=== PATIENT | female | born 1975 | race Caucasian/White ===

== ENCOUNTER 2016-09-25 23:17 | Emergency (ER) | payer OTHER ==
--- NOTE | 2016-09-26 00:46 | ED CLINICAL REPORT ---
Clinical Report - Physicians/Mid Levels [facility] [address] [place] [address] 09/25/2016 23:19 Patient: BHAVIN FAITH Time Seen: 23:32; initial patient contact. Arrived- By private vehicle. Historian- patient. HISTORY OF PRESENT ILLNESS Chief Complaint: PARESTHESIA. This started today and is still present but is improving. It was gradual in onset. The patient has had new onset of constant tingling of the left arm (mild). No weakness, numbness or impaired speech. At its maximum deficit described as mild. When seen in the E.D., deficit described as mild. No dizziness. Usually is alert and oriented X3 and has normal mobility. Similar symptoms previously: Several times. Recent medical care: The patient was seen recently in the office. Seen for other problems. REVIEW OF SYSTEMS No headache, head injury or joint pain. She has had neck pain. All systems otherwise negative, except as recorded above. PAST HISTORY Negative. Surgeries: Dental surgery. SOCIAL HISTORY Current every day smoker. ADDITIONAL NOTES The nursing notes have been reviewed with agreement regarding the chief complaint, PMH and patient medications and allergies. PHYSICAL EXAM Vital Signs: 09/25/2016 23:28 BP: 153/87. HR: 88. RR: 16. O2 saturation: 100%. Temp: 98.5 F. Have been reviewed. Hypertensive. Heart rate normal. Respiratory rate normal. Temperature normal. Oxygen saturation normal. Appearance: Alert. No acute distress. Head: Head atraumatic. ENT: Pharynx normal. Neck: Mild muscle spasm of the right and left posterior neck. Mild soft tissue tenderness in the right upper, mid and lower neck area and left upper, mid and lower neck area. No meningeal signs or decreased ROM in the neck. CVS: Normal heart rate and rhythm. Heart sounds normal. Respiratory: No respiratory distress. Breath sounds normal. Back: Normal inspection. Skin: Normal skin color. No rash. Neuro: Alert. Oriented X 3. Mood/affect normal. Speech normal. No motor deficit. No sensory deficit. Reflex exam: right triceps 2+, left triceps 2+, right brachioradialis 2+ and left brachioradialis 2+. LABS, X-RAYS, AND EKG C-Spine X-rays: Prominent straightening of the cervical spine. Moderate reversal of the normal cervical lordosis. Soft tissues normal. No fracture or subluxation. No bony lesion. Views: 3 view C-spine series. Technique: good. The X-rays were independently viewed by me and interpreted contemporaneously by me. Prior films were not available for comparison. Interpretation time: 00:45. PROGRESS AND PROCEDURES Disposition: Discharged home in good condition. Condition: good. CLINICAL IMPRESSION Muscle strain of the neck. INSTRUCTIONS Your Current Medications: CONTINUE TAKING THE FOLLOWING MEDICATIONS: Methadose Oral. Follow-up: Follow up with your doctor if not better. Call for an appointment. Screening today revealed the patient's blood pressure to be in the hypertensive range. The patient should follow up with a primary care provider for blood pressure management. (Electronically signed by Benny Perez Dr. 09/26/2016 0:48)
--- NOTE | 2016-09-26 00:46 | ED ORDER SUMMARY ---
..... Patient: BHAVIN FAITH OrderSheet [facility] VisitID: [id number] [address] [place] [address] 41y, F Registration Date/Time: 09/25/2016 ORDER SHEET Weight: 90.7 kg (stated) Allergies: Ultram GENERAL ORDERS: Cervical Spine 2 or 3V Urgent (23:54 09/25/2016 Massimo Bush) (Ack 0:00 Sean [facility] Toolroom Clerk) (0:17 Ellen) MEDICATION ORDERS: IV FLUIDS: ORDER SHEET NOTES: [Electronically signed by Benny Perez Dr. (00:48 09/26/2016)] [Electronically signed by Rubens Hall R.N. (01:11 09/26/2016)] [Electronically locked/signed by Rubens Hall R.N. (01:11 09/26/2016)]
--- NOTE | 2016-09-26 00:46 | ED NURSING NOTES ---
Clinical Report - Nurses [facility] [address] [place] [address] 09/25/2016 23:19 Patient: BHAVIN FAITH TRIAGE Triage time 2328. Acuity: LEVEL 3. Chief Complaint: RIGHT UPPER EXTREMITY NUMBNESS. LEFT UPPER EXTREMITY NUMBNESS. --23:35 Rubens Hall R.N. 23:28 09/25/16. BP: 153/87. HR: 88. RR: 16. O2 saturation: 100%. Temp: 98.5 F. Pain level now 0/10. --23:35 Rubens Hall R.N. Weight: 90.7 kg stated. Height/Length: 66 inches Per Patient. BMI: 32.3. --23:39 Rubens Hall R.N. Medications Methadose Oral. --23:31 Rubens Hall R.N. Allergies Ultram. --23:31 Rubens Hall R.N. History Historian: patient. No injury occurred. 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 PAST MEDICAL HX: Last normal menstrual period was 4 weeks ago- n. SOCIAL HX: Heavy tobacco smoker- 1 pack per day. FALL RISK ASSESSMENT: Fall risk assessment completed. No fall risk identified. NUTRITIONAL RISK ASSESSMENT: The nutritional risk assessment revealed no deficiencies. FUNCTIONAL ASSESSMENT: Functional assessment: no impairments noted. LEARNING NEEDS ASSESSMENT: The learning needs assessment revealed no barriers. SKIN INTEGRITY ASSESSMENT: Skin integrity risk assessment completed. No skin integrity risk identified. --23:35 Rubens Hall R.N. ADDITIONAL SURGERIES: Tooth implant. --23:32 Rubens Hall R.N. Interventions ID band on patient. --23:35 Rubens Hall R.N. PHYSICAL ASSESSMENT Ambulatory to room. GENERAL / NEURO / PSYCH: Oriented X 4. Alert. Appears in no acute distress. EXTREMITIES: Extremities exhibit normal ROM. Neuro-vascular status intact to the extremity. No upper extremity edema. Skin is non-tender on the extremities. SKIN: Skin intact. Skin is warm and dry. --23:38 Rubens Hall R.N. NURSING PROGRESS NOTES Patient gowned. Reassurance given. Patient identifiers checked. Call light placed in reach. Bed placed in lowest position. Brakes of bed on. --23:39 Rubens Hall R.N. DISPOSITION / DISCHARGE Departure time: 0100. Condition at departure: improved. No learning barriers present. Discharge instructions provided and reviewed with the patient. Reviewed warnings. Treatments reviewed. Activity restrictions reviewed. Patient verbalized understanding. Written instructions provided in Serbian. The patient was discharged by the physician. She was discharged home and unaccompanied at time of discharge. She left the Emergency Department ambulatory and via private vehicle. Patient driving. FALL RISK ASSESSMENT: Fall risk assessment completed. No fall risk identified. --01:11 Rubens Hall R.N. 01:10 09/26/16. BP: 144/88. HR: 88. RR: 16. O2 saturation: 98%. Temp: 98 F. Pain level now 0/10. --01:11 Rubens Hall R.N. Locked/Released at 09/26/2016 1:11 by Rubens Hall R.N.
--- NOTE | 2016-09-26 00:46 | ED CLINICAL REPORT ---
Clinical Report - Physicians/Mid Levels [facility] [address] [place] [place] [address] 09/25/2016 23:19 Patient: BHAVIN FAITH Time Seen: 23:32; initial patient contact. Arrived- By private vehicle. Historian- patient. HISTORY OF PRESENT ILLNESS Chief Complaint: PARESTHESIA. This started today and is still present but is improving. It was gradual in onset. The patient has had new onset of constant tingling of the left arm (mild). No weakness, numbness or impaired speech. At its maximum deficit described as mild. When seen in the E.D., deficit described as mild. No dizziness. Usually is alert and oriented X3 and has normal mobility. Similar symptoms previously: Several times. Recent medical care: The patient was seen recently in the office. Seen for other problems. REVIEW OF SYSTEMS No headache, head injury or joint pain. She has had neck pain. All systems otherwise negative, except as recorded above. PAST HISTORY Negative. Surgeries: Dental surgery. SOCIAL HISTORY Current every day smoker. ADDITIONAL NOTES The nursing notes have been reviewed with agreement regarding the chief complaint, PMH and patient medications and allergies. PHYSICAL EXAM Vital Signs: 09/25/2016 23:28 BP: 153/87. HR: 88. RR: 16. O2 saturation: 100%. Temp: 98.5 F. Have been reviewed. Hypertensive. Heart rate normal. Respiratory rate normal. Temperature normal. Oxygen saturation normal. Appearance: Alert. No acute distress. Head: Head atraumatic. ENT: Pharynx normal. Neck: Mild muscle spasm of the right and left posterior neck. Mild soft tissue tenderness in the right upper, mid and lower neck area and left upper, mid and lower neck area. No meningeal signs or decreased ROM in the neck. CVS: Normal heart rate and rhythm. Heart sounds normal. Respiratory: No respiratory distress. Breath sounds normal. Back: Normal inspection. Skin: Normal skin color. No rash. Neuro: Alert. Oriented X 3. Mood/affect normal. Speech normal. No motor deficit. No sensory deficit. Reflex exam: right triceps 2+, left triceps 2+, right brachioradialis 2+ and left brachioradialis 2+. LABS, X-RAYS, AND EKG C-Spine X-rays: Prominent straightening of the cervical spine. Moderate reversal of the normal cervical lordosis. Soft tissues normal. No fracture or subluxation. No bony lesion. Views: 3 view C-spine series. Technique: good. The X-rays were independently viewed by me and interpreted contemporaneously by me. Prior films were not available for comparison. Interpretation time: 00:45. PROGRESS AND PROCEDURES Disposition: Discharged home in good condition. Condition: good. CLINICAL IMPRESSION Muscle strain of the neck. INSTRUCTIONS Your Current Medications: CONTINUE TAKING THE FOLLOWING MEDICATIONS: Methadose Oral. Follow-up: Follow up with your doctor if not better. Call for an appointment. Screening today revealed the patient's blood pressure to be in the hypertensive range. The patient should follow up with a primary care provider for blood pressure management. (Electronically signed by Benny Perez Dr. 09/26/2016 0:48)
--- NOTE | 2016-09-26 00:46 | ED NURSING NOTES ---
Clinical Report - Nurses [facility] [address] [place] [address] 09/25/2016 23:19 Patient: BHAVIN FAITH TRIAGE Triage time 2328. Acuity: LEVEL 3. Chief Complaint: RIGHT UPPER EXTREMITY NUMBNESS. LEFT UPPER EXTREMITY NUMBNESS. --23:35 Rubens Hall R.N. 23:28 09/25/16. BP: 153/87. HR: 88. RR: 16. O2 saturation: 100%. Temp: 98.5 F. Pain level now 0/10. --23:35 Rubens Hall R.N. Weight: 90.7 kg stated. Height/Length: 66 inches Per Patient. BMI: 32.3. --23:39 Rubens Hall R.N. Medications Methadose Oral. --23:31 Rubens Hall R.N. Allergies Ultram. --23:31 Rubens Hall R.N. History Historian: patient. No injury occurred. 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 PAST MEDICAL HX: Last normal menstrual period was 4 weeks ago- n. SOCIAL HX: Heavy tobacco smoker- 1 pack per day. FALL RISK ASSESSMENT: Fall risk assessment completed. No fall risk identified. NUTRITIONAL RISK ASSESSMENT: The nutritional risk assessment revealed no deficiencies. FUNCTIONAL ASSESSMENT: Functional assessment: no impairments noted. LEARNING NEEDS ASSESSMENT: The learning needs assessment revealed no barriers. SKIN INTEGRITY ASSESSMENT: Skin integrity risk assessment completed. No skin integrity risk identified. --23:35 Rubens Hall R.N. ADDITIONAL SURGERIES: Tooth implant. --23:32 Rubens Hall R.N. Interventions ID band on patient. --23:35 Rubens Hall R.N. PHYSICAL ASSESSMENT Ambulatory to room. GENERAL / NEURO / PSYCH: Oriented X 4. Alert. Appears in no acute distress. EXTREMITIES: Extremities exhibit normal ROM. Neuro-vascular status intact to the extremity. No upper extremity edema. Skin is non-tender on the extremities. SKIN: Skin intact. Skin is warm and dry. --23:38 Rubens Hall R.N. NURSING PROGRESS NOTES Patient gowned. Reassurance given. Patient identifiers checked. Call light placed in reach. Bed placed in lowest position. Brakes of bed on. --23:39 Rubens Hall R.N. DISPOSITION / DISCHARGE Departure time: 0100. Condition at departure: improved. No learning barriers present. Discharge instructions provided and reviewed with the patient. Reviewed warnings. Treatments reviewed. Activity restrictions reviewed. Patient verbalized understanding. Written instructions provided in Greek. The patient was discharged by the physician. She was discharged home and unaccompanied at time of discharge. She left the Emergency Department ambulatory and via private vehicle. Patient driving. FALL RISK ASSESSMENT: Fall risk assessment completed. No fall risk identified. --01:11 Rubens Hall R.N. 01:10 09/26/16. BP: 144/88. HR: 88. RR: 16. O2 saturation: 98%. Temp: 98 F. Pain level now 0/10. --01:11 Rubens Hall R.N. Locked/Released at 09/26/2016 1:11 by Rubens Hall R.N.
--- NOTE | 2016-09-26 00:46 | ED ORDER SUMMARY ---
..... Patient: BHAVIN FAITH OrderSheet [facility] VisitID: [id number] [address] [place] [address] 41y, F Registration Date/Time: 09/25/2016 ORDER SHEET Weight: 90.7 kg (stated) Allergies: Ultram GENERAL ORDERS: Cervical Spine 2 or 3V Urgent (23:54 09/25/2016 Massimo Bush) (Ack 0:00 Sean [facility] Stock Counter) (0:17 Ellen) MEDICATION ORDERS: IV FLUIDS: ORDER SHEET NOTES: [Electronically signed by Benny Perez Dr. (00:48 09/26/2016)] [Electronically signed by Rubens Hall R.N. (01:11 09/26/2016)] [Electronically locked/signed by Rubens Hall R.N. (01:11 09/26/2016)]
--- NOTE | 2016-09-26 01:11 | ED MED RECONCILIATION SUMMARY ---
Patient: BHAVIN FAITH Medication Reconciliation Report [facility] VisitID: [id number] [address] [place] [address] 41y, F Registration Date/Time: 09/25/2016 Weight: 90.7 kg Height/Length: 66 in. BMI: 32.3 ALLERGIES: Ultram The patient's Home Medications are listed below: CONTINUE TAKING THE FOLLOWING MEDICATIONS: Methadose Oral The source(s) of the original Home Medication information: Not obtained. The following Medications were given to the patient in the Emergency Department: None. The following Medications were prescribed to the patient: None.
--- NOTE | 2016-09-26 01:11 | ED MAR SUMMARY ---
..... Medication Administration Record [facility] [address] [place], [place] [id number] Patient: BHAVIN FAITH Visit ID: [id number] 41y, F Weight: 90.7 kg Height/Length: 66 in BMI: 32.3 ALLERGIES: Ultram
--- NOTE | 2016-09-26 01:11 | ED MAR SUMMARY ---
..... Medication Administration Record [facility] [address] [place], [place] [id number] Patient: BHAVIN FAITH Visit ID: [id number] 41y, F Weight: 90.7 kg Height/Length: 66 in BMI: 32.3 ALLERGIES: Ultram
--- NOTE | 2016-09-26 01:11 | ED DISCHARGE INSTRUCTIONS ---
Patient: BHAVIN FAITH General Instructions [facility] VisitID: [id number] [place] [address] 41y, F Registration Date/Time: 09/25/2016 Muscle strain of the neck. INSTRUCTIONS Your Current Medications: CONTINUE TAKING THE FOLLOWING MEDICATIONS: Methadose Oral. Follow-up: Follow up with your doctor if not better. Call for an appointment. Screening today revealed the patient's blood pressure to be in the hypertensive range. The patient should follow up with a primary care provider for blood pressure management. ADDITIONAL INFORMATION Neck Sprain Or Strain A sudden force that causes turning or bending of the neck (such as in a car accident) can stretch or tear muscles (strain) and ligaments (sprain) and cause neck pain. Sometimes neck pain occurs after a simple awkward movement. In either case, muscle spasm is commonly present and contributes to the pain. Unless you had a forceful physical injury (for example, a car accident or fall), X-rays are usually not ordered for the initial evaluation of neck pain. If pain continues and dose not respond to medical treatment, X-rays and other tests may be performed at a later time. Home care The following guidelines will help you care for your injury at home: You may feel more soreness and spasm the first few days after the injury. Reduce your activity level until symptoms begin to improve. When lying down, use a comfortable pillow that supports the head and keeps the spine in a neutral position. The position of the head should not be tilted forward or backward. Use ice packs (ice in a plastic bag, wrapped in a towel) to treat acute pain. Apply for 20 minutes every 24 hours during the first two days. Then, begin local heat (hot shower, hot bath or heating pad) andmassageto reduce muscle spasm. Some patients feel best alternating hot and cold treatments, or just staying with one method only. Do what feels the best to you and gives the most relief. You may use acetaminophen or ibuprofen to control pain, unless another pain medicine was prescribed.If you have chronic liver or kidney disease or ever had a stomach ulcer or GI bleeding, talk with your doctor before using these medicines. Follow-up care Follow up with your physician or this facility if your symptoms do not show signs of improvement. Physical therapy may be needed. If you had X-rays today, they didnt show any broken bones, breaks, or fractures. Sometimes fractures dont show up on the first X-ray. Bruises and sprains can sometimes hurt as much as a fracture. These injuries can take time to heal completely. If your symptoms dont improve or they get worse, talk with your doctor. You may need a repeat X-ray. When to seek medical care Get prompt medical attention if any of the following occur: Pain becomes worse or spreads into your arms Weakness or numbness in one or both arms You have been given the following additional information: Neck Sprain/Strain (Electronically signed by Benny Perez Dr. 09/26/2016 0:48)
--- NOTE | 2016-09-26 01:11 | ED MED RECONCILIATION SUMMARY ---
Patient: BHAVIN FAITH Medication Reconciliation Report [facility] VisitID: [id number] [address] [place] [address] 41y, F Registration Date/Time: 09/25/2016 Weight: 90.7 kg Height/Length: 66 in. BMI: 32.3 ALLERGIES: Ultram The patient's Home Medications are listed below: CONTINUE TAKING THE FOLLOWING MEDICATIONS: Methadose Oral The source(s) of the original Home Medication information: Not obtained. The following Medications were given to the patient in the Emergency Department: None. The following Medications were prescribed to the patient: None.
--- NOTE | 2016-09-26 06:22 | DIAGNOSTIC IMAGING REPORT ---
PROCEDURE: XR CERVICAL SPINE 2 OR 3 VIEW INDICATION: NECK PAIN TECHNIQUE: Three views. COMPARISON: None. FINDINGS: There mild degenerative changes of the mid cervical spine with mild disc space narrowing at C5-6 level. There is mild facet disease. The rest the osseous structures and disc spaces are normal. No evidence of an acute process or fracture. IMPRESSION: 1. Mild degenerative changes of the cervical spine.
== END 2016-09-26 01:00 | disposition home or self-care (01) ==
LOC: ED SRH 23:17
DX: S16.1XXA Strain of muscle, fascia and tendon at neck level, initial encounter (principal); X58.XXXA Exposure to other specified factors, initial encounter; F17.200 Nicotine dependence, unspecified, uncomplicated; Z88.6 Allergy status to analgesic agent

== ENCOUNTER 2016-09-26 21:27 | Emergency (ER) | payer OTHER ==
--- NOTE | 2016-09-26 23:01 | DIAGNOSTIC IMAGING REPORT ---
PROCEDURE: XR CHEST 2 VIEW INDICATION: Shortness of breath. Epigastric pain. TECHNIQUE: PA and lateral views. COMPARISON: Compared to chest x-ray on 11/25/2010. FINDINGS: Large hiatal hernia. Lungs are clear. Heart and mediastinum are normal. Thorax is normal. IMPRESSION: 1. Large hiatal hernia. 2. Otherwise negative chest.
--- NOTE | 2016-09-27 00:19 | ED CLINICAL REPORT ---
Clinical Report - Physicians/Mid Levels [facility] [address] [place] [address] 09/26/2016 21:27 Patient: BHAVIN FAITH Time Seen: 22:34 Sep 26 2016. Arrived- By private vehicle. Historian- patient. CPT: ER phys charges level 4 (#[id number]). HISTORY OF PRESENT ILLNESS Chief Complaint: PALPITATIONS. Modifying factors. Not worsened by anything. Not relieved by anything. This started today ( Pt was seen here last night for bilateral arm numbness. Pt came here today due to nausea and palpitations. Pt says, "my heart and chest does not hurt, but I feel like it is racing." My stomach is making growling noises. Pt is also feeling dizzy and wants to cry. She is feeling hot and cold at the same time, per pt.). She has had nausea. and is still present. It is described as a fast heart beat. No chest pain or discomfort, difficulty breathing or sweating episodes. She has had dizziness and tingling in hands. Similar symptoms previously: None. Recent medical care: The patient was seen recently at this facility. REVIEW OF SYSTEMS No fever, chills, cough, sore throat or nausea. No abdominal pain, black stools, difficulty with urination, skin rash or vomiting. No diarrhea. All systems otherwise negative, except as recorded above. PAST HISTORY See nurses notes. Myofascial Strain. Asthma. 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 Pneumonia. SOCIAL HISTORY Heavy tobacco smoker (cigarette)- 1 pack per day. ADDITIONAL NOTES The nursing notes have been reviewed. PHYSICAL EXAM Vital Signs: 09/26/2016 21:30 BP: 159/108. HR: 86. RR: 22. O2 saturation: 100%. Temp: 98.1 F. Appearance: Alert. Anxious. Patient in mild distress. Eyes: Eyes normal inspection. ENT: Pharynx normal. Neck: Normal inspection. CVS: Normal heart rate and rhythm. Heart sounds normal. Pulses normal. Respiratory: No respiratory distress. Breath sounds normal. Chest nontender. Abdomen: Soft and nontender. Bowel sounds normal. Back: Normal external inspection. Skin: Skin warm. Normal skin color. No rash. Extremities: Extremities exhibit normal ROM. No lower extremity edema. Neuro: Oriented X 3. No motor deficit. No sensory deficit. LABS, X-RAYS, AND EKG EKG: Normal EKG. Chest X-ray: No acute disease. Normal heart size. Mediastinum normal. Great vessels normal. No infiltrate. (large hiatal hernia). Views: PA and lateral. Technique: good. The X-rays were independently viewed by me and interpreted by the radiologist. PROGRESS AND PROCEDURES Course of Care: Zofran ODT 4 mg by mouth Xanax 0.5 mg by mouth patient much better with resolution of dizziness nausea and symptoms that she came in with. Has not had any palpitations since she's been here. Her palpitation episode at home only lasted 3 or 4 minutes. Patient is stable. The patient's symptoms are now gone. Symptoms much better. Patient/family counseled. Disposition: Discharged. Condition: stable and improved. CLINICAL IMPRESSION Palpitations and dizziness: Resolved. INSTRUCTIONS No strenuous activity. Rest. Avoid stimulants (such as cigarettes, coffee, cold medicines, sinus medicines, street drugs). Warnings: Further evaluation is necessary. SEDATIVE MEDICATION: You were given sedative medication during your visit. Do not drive or operate dangerous machinery. GENERAL WARNINGS: Return or contact your physician immediately if your condition worsens or changes unexpectedly, if not improving as expected, or if other problems arise. Your Current Medications: CONTINUE TAKING THE FOLLOWING MEDICATIONS: Methadose Oral. Prescription Medications: Zofran (orally disintegrating tablets) 4 mg: take 1 orally every 6 hours as needed for nausea. Dispense ten (10). No refill. Substitution is permissible. Xanax 0.25 mg: take 1 orally every 6 hours as needed. Dispense ten (10). No refill. Substitution is permissible. Follow-up: Return to the emergency department if worse. Follow up with your doctor in five days. Call for an appointment. Understanding of the discharge instructions verbalized by patient and family. (Electronically signed by Bill Garces MD 09/29/2016 11:13)
--- NOTE | 2016-09-27 00:19 | ED NURSING NOTES ---
Clinical Report - Nurses [facility] [address] [place] [address] 09/26/2016 21:27 Patient: BHAVIN FAITH TRIAGE Acuity: LEVEL 3. Chief Complaint: (Palpitations.). --21:38 Cliff Parker R.N. 21:30 09/26/16. BP: 159/108. HR: 86. RR: 22. O2 saturation: 100%. Temp: 98.1 F. Pain level now 0/10. --21:38 Cliff Parker R.N. Weight: 90.2 kg stated. Height/Length: 67 inches Per Patient. BMI: 31.2. --21:38 Cliff Parker R.N. Medications Methadose Oral. --21:37 Cliff Parker R.N. Allergies Ultram. --21:37 Cliff Parker R.N. History ( Pt was seen here last night for bilateral arm numbness. Pt came here today due to nausea and palpitations. Pt says, "my heart and chest does not hurt, but I feel like it is racing." My stomach is making growling noises. Pt is also feeling dizzy and wants to cry. She is feeling hot and cold at the same time, per pt.). She has had nausea. PAST MEDICAL HX: Immunizations: up-to-date. SOCIAL HX: Current every day heavy tobacco smoker (cigarette)- 1 pack per day. No alcohol use or drug use. --21:38 Cliff Parker R.N. PROBLEMS: Myofascial Strain. --21:37 Cliff Parker R.N. Interventions ID band on patient. To treatment room. --21:38 Cliff Parker R.N. PHYSICAL ASSESSMENT Patient gowned. GENERAL / NEURO / PSYCH: Alert. Oriented X 4. Appears in no acute distress. HEENT: Mucous membranes are pink. RESPIRATORY: Respirations not labored. CVS: Normal sinus rhythm noted. GI / : Abdomen soft. Abdominal tenderness in the epigastric area. EXTREMITIES: No lower extremity edema. SKIN: Skin is warm and dry. --22:40 Haley Su. NURSING PROGRESS NOTES manager control, pulse oximeter and NIBP monitor placed on patient; monitor alarms on. Patient gowned. Reassurance given to the patient. Two patient identifiers checked. Call light placed in reach. Side rails up x 1. Bed placed in lowest position. Brakes of bed on. Patient ready for evaluation- chart flagged and ED physician notified. --22:41 Haley Su 22:41 09/26/16. BP: 147/98. HR: 88. RR: 20. O2 saturation: 100% on room air. Temp: 98.5 F (oral). Pain level now: 12/08. --22:41 Haley Su 22:46 09/26/2016 Zofran ODT (Ondansetron) PO Oral Disintegrating Tablets 4 mg given. Allergies verified and confirmed 5 rights. --22:46 Haley Su 22:47 09/26/2016 Alprazolam PO Tablets 0.5 mg given. Allergies verified, confirmed 5 rights and sedative warning given to the patient and patient's family. --22:47 Haley Su EKG time: (2336). EKG was ordered, performed by a tech and shown to the ED physician. --23:41 Frances Mcgee The patient is sleeping. --00:04 Haley Su 00:03 09/27/16. BP: 110/61. HR: 80. RR: 20. O2 saturation: 95% on room air. --00:04 Haley Su. DISPOSITION / DISCHARGE 00:30 09/27/16. Condition at departure: stable. No learning barriers present. Discharge instructions provided and reviewed with the patient and spouse. Reviewed medication(s) side effects, precautions, dosing and course information. Prescription(s) given to the patient. Patient verbalized understanding. Written instructions provided in Russian. The patient was discharged by the physician. She was discharged home and accompanied by spouse. She left the Emergency Department ambulatory and via private vehicle. Spouse driving. --01:54 Haley Su 00:30 09/27/16. BP: 109/67. HR: 78. RR: 20. O2 saturation: 96% on room air. Temp: 98.4 F (oral). Pain level now: 0/10. --01:54 Haley Su. Locked/Released at 09/27/2016 1:54 by Haley Su,
--- NOTE | 2016-09-27 00:19 | ED ORDER SUMMARY ---
..... Patient: BHAVIN FAITH OrderSheet [facility] VisitID: [id number] [place] [address] 41y, F Registration Date/Time: 09/26/2016 ORDER SHEET Weight: 90.2 kg (stated) Allergies: Ultram GENERAL ORDERS: Chest 2V Urgent (22:40 09/26/2016 Miranda BEYER) (Ack 22:41 AMcQuoid ER Tech1) (22:56 MCampbell) EKG - ER Stat (22:40 09/26/2016 Miranda BEYER) (Ack 22:41 AMcQuoid ER Tech1) (23:42 CHategekimana) MEDICATION ORDERS: Zofran ODT PO 4 mg (NOW) (22:40 09/26/2016 Miranda BEYER) (Ack 22:41 HSoule) (22:46 HSoule) Alprazolam PO 0.5 mg (NOW) (22:40 09/26/2016 Miranda BEYER) (Ack 22:41 HSoule) (22:47 HSoule) IV FLUIDS: ORDER SHEET NOTES: [Electronically signed by Haley Su (01:54 09/27/2016)] [Electronically signed by Bill Garces MD (11:13 09/29/2016)] [Electronically locked/signed by Haley Su (01:54 09/27/2016)]
--- NOTE | 2016-09-27 00:19 | ED ORDER SUMMARY ---
..... Patient: BHAVIN FAITH OrderSheet [facility] VisitID: [id number] [place] [address] 41y, F Registration Date/Time: 09/26/2016 ORDER SHEET Weight: 90.2 kg (stated) Allergies: Ultram GENERAL ORDERS: Chest 2V Urgent (22:40 09/26/2016 Miranda BEYER) (Ack 22:41 AMcQuoid ER Tech1) (22:56 MCampbell) EKG - ER Stat (22:40 09/26/2016 Miranda BEYER) (Ack 22:41 AMcQuoid ER Tech1) (23:42 CHategekimana) MEDICATION ORDERS: Zofran ODT PO 4 mg (NOW) (22:40 09/26/2016 Miranda BEYER) (Ack 22:41 HSoule) (22:46 HSoule) Alprazolam PO 0.5 mg (NOW) (22:40 09/26/2016 Miranda BEYER) (Ack 22:41 HSoule) (22:47 HSoule) IV FLUIDS: ORDER SHEET NOTES: [Electronically signed by Haley Su (01:54 09/27/2016)] [Electronically signed by Bill Garces MD (11:13 09/29/2016)] [Electronically locked/signed by Haley Su (01:54 09/27/2016)]
--- NOTE | 2016-09-27 00:19 | ED NURSING NOTES ---
Clinical Report - Nurses [facility] [address] [place] [address] 09/26/2016 21:27 Patient: BHAVIN FAITH TRIAGE Acuity: LEVEL 3. Chief Complaint: (Palpitations.). --21:38 Cliff Parker R.N. 21:30 09/26/16. BP: 159/108. HR: 86. RR: 22. O2 saturation: 100%. Temp: 98.1 F. Pain level now 0/10. --21:38 Cliff Parker R.N. Weight: 90.2 kg stated. Height/Length: 67 inches Per Patient. BMI: 31.2. --21:38 Cliff Parker R.N. Medications Methadose Oral. --21:37 Cliff Parker R.N. Allergies Ultram. --21:37 Cliff Parker R.N. History ( Pt was seen here last night for bilateral arm numbness. Pt came here today due to nausea and palpitations. Pt says, "my heart and chest does not hurt, but I feel like it is racing." My stomach is making growling noises. Pt is also feeling dizzy and wants to cry. She is feeling hot and cold at the same time, per pt.). She has had nausea. PAST MEDICAL HX: Immunizations: up-to-date. SOCIAL HX: Current every day heavy tobacco smoker (cigarette)- 1 pack per day. No alcohol use or drug use. --21:38 Cliff Parker R.N. PROBLEMS: Myofascial Strain. --21:37 Cliff Parker R.N. Interventions ID band on patient. To treatment room. --21:38 Cliff Parker R.N. PHYSICAL ASSESSMENT Patient gowned. GENERAL / NEURO / PSYCH: Alert. Oriented X 4. Appears in no acute distress. HEENT: Mucous membranes are pink. RESPIRATORY: Respirations not labored. CVS: Normal sinus rhythm noted. GI / : Abdomen soft. Abdominal tenderness in the epigastric area. EXTREMITIES: No lower extremity edema. SKIN: Skin is warm and dry. --22:40 Haley Su. NURSING PROGRESS NOTES metal container maker, pulse oximeter and NIBP monitor placed on patient; monitor alarms on. Patient gowned. Reassurance given to the patient. Two patient identifiers checked. Call light placed in reach. Side rails up x 1. Bed placed in lowest position. Brakes of bed on. Patient ready for evaluation- chart flagged and ED physician notified. --22:41 Haley Su 22:41 09/26/16. BP: 147/98. HR: 88. RR: 20. O2 saturation: 100% on room air. Temp: 98.5 F (oral). Pain level now: 12/08. --22:41 Haley Su 22:46 09/26/2016 Zofran ODT (Ondansetron) PO Oral Disintegrating Tablets 4 mg given. Allergies verified and confirmed 5 rights. --22:46 Haley Su 22:47 09/26/2016 Alprazolam PO Tablets 0.5 mg given. Allergies verified, confirmed 5 rights and sedative warning given to the patient and patient's family. --22:47 Haley Su EKG time: (2336). EKG was ordered, performed by a tech and shown to the ED physician. --23:41 Frances Mcgee The patient is sleeping. --00:04 Haley Su 00:03 09/27/16. BP: 110/61. HR: 80. RR: 20. O2 saturation: 95% on room air. --00:04 Haley Su. DISPOSITION / DISCHARGE 00:30 09/27/16. Condition at departure: stable. No learning barriers present. Discharge instructions provided and reviewed with the patient and spouse. Reviewed medication(s) side effects, precautions, dosing and course information. Prescription(s) given to the patient. Patient verbalized understanding. Written instructions provided in Greenlandic. The patient was discharged by the physician. She was discharged home and accompanied by spouse. She left the Emergency Department ambulatory and via private vehicle. Spouse driving. --01:54 Haley Su 00:30 09/27/16. BP: 109/67. HR: 78. RR: 20. O2 saturation: 96% on room air. Temp: 98.4 F (oral). Pain level now: 0/10. --01:54 Haley Su. Locked/Released at 09/27/2016 1:54 by Haley Su,
--- NOTE | 2016-09-27 00:19 | ED CLINICAL REPORT ---
Clinical Report - Physicians/Mid Levels [facility] [address] [place] [address] 09/26/2016 21:27 Patient: BHAVIN FAITH Time Seen: 22:34 Sep 26 2016. Arrived- By private vehicle. Historian- patient. CPT: ER phys charges level 4 (#[id number]). HISTORY OF PRESENT ILLNESS Chief Complaint: PALPITATIONS. Modifying factors. Not worsened by anything. Not relieved by anything. This started today ( Pt was seen here last night for bilateral arm numbness. Pt came here today due to nausea and palpitations. Pt says, "my heart and chest does not hurt, but I feel like it is racing." My stomach is making growling noises. Pt is also feeling dizzy and wants to cry. She is feeling hot and cold at the same time, per pt.). She has had nausea. and is still present. It is described as a fast heart beat. No chest pain or discomfort, difficulty breathing or sweating episodes. She has had dizziness and tingling in hands. Similar symptoms previously: None. Recent medical care: The patient was seen recently at this facility. REVIEW OF SYSTEMS No fever, chills, cough, sore throat or nausea. No abdominal pain, black stools, difficulty with urination, skin rash or vomiting. No diarrhea. All systems otherwise negative, except as recorded above. PAST HISTORY See nurses notes. Myofascial Strain. Asthma. 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 Pneumonia. SOCIAL HISTORY Heavy tobacco smoker (cigarette)- 1 pack per day. ADDITIONAL NOTES The nursing notes have been reviewed. PHYSICAL EXAM Vital Signs: 09/26/2016 21:30 BP: 159/108. HR: 86. RR: 22. O2 saturation: 100%. Temp: 98.1 F. Appearance: Alert. Anxious. Patient in mild distress. Eyes: Eyes normal inspection. ENT: Pharynx normal. Neck: Normal inspection. CVS: Normal heart rate and rhythm. Heart sounds normal. Pulses normal. Respiratory: No respiratory distress. Breath sounds normal. Chest nontender. Abdomen: Soft and nontender. Bowel sounds normal. Back: Normal external inspection. Skin: Skin warm. Normal skin color. No rash. Extremities: Extremities exhibit normal ROM. No lower extremity edema. Neuro: Oriented X 3. No motor deficit. No sensory deficit. LABS, X-RAYS, AND EKG EKG: Normal EKG. Chest X-ray: No acute disease. Normal heart size. Mediastinum normal. Great vessels normal. No infiltrate. (large hiatal hernia). Views: PA and lateral. Technique: good. The X-rays were independently viewed by me and interpreted by the radiologist. PROGRESS AND PROCEDURES Course of Care: Zofran ODT 4 mg by mouth Xanax 0.5 mg by mouth patient much better with resolution of dizziness nausea and symptoms that she came in with. Has not had any palpitations since she's been here. Her palpitation episode at home only lasted 3 or 4 minutes. Patient is stable. The patient's symptoms are now gone. Symptoms much better. Patient/family counseled. Disposition: Discharged. Condition: stable and improved. CLINICAL IMPRESSION Palpitations and dizziness: Resolved. INSTRUCTIONS No strenuous activity. Rest. Avoid stimulants (such as cigarettes, coffee, cold medicines, sinus medicines, street drugs). Warnings: Further evaluation is necessary. SEDATIVE MEDICATION: You were given sedative medication during your visit. Do not drive or operate dangerous machinery. GENERAL WARNINGS: Return or contact your physician immediately if your condition worsens or changes unexpectedly, if not improving as expected, or if other problems arise. Your Current Medications: CONTINUE TAKING THE FOLLOWING MEDICATIONS: Methadose Oral. Prescription Medications: Zofran (orally disintegrating tablets) 4 mg: take 1 orally every 6 hours as needed for nausea. Dispense ten (10). No refill. Substitution is permissible. Xanax 0.25 mg: take 1 orally every 6 hours as needed. Dispense ten (10). No refill. Substitution is permissible. Follow-up: Return to the emergency department if worse. Follow up with your doctor in five days. Call for an appointment. Understanding of the discharge instructions verbalized by patient and family. (Electronically signed by Bill Garces MD 09/29/2016 11:13)
--- NOTE | 2016-09-29 11:13 | ED MED RECONCILIATION SUMMARY ---
Patient: BHAVIN FAITH Medication Reconciliation Report [facility] VisitID: [id number] [address] [place] [address] 41y, F Registration Date/Time: 09/26/2016 Weight: 90.2 kg Height/Length: 67 in. BMI: 31.2 ALLERGIES: Ultram The patient's Home Medications are listed below: CONTINUE TAKING THE FOLLOWING MEDICATIONS: Methadose Oral The source(s) of the original Home Medication information: Not obtained. The following Medications were given to the patient in the Emergency Department: Zofran ODT [PO] PO 4 mg, administered: 09/26/2016 10:46:00 PM Alprazolam [PO] PO 0.5 mg, administered: 09/26/2016 10:47:00 PM The following Medications were prescribed to the patient: Zofran (orally disintegrating tablets) 4 mg: take 1 orally every 6 hours as needed for nausea. Dispense ten (10). No refill. Substitution is permissible. -- Bill Garces MD Xanax 0.25 mg: take 1 orally every 6 hours as needed. Dispense ten (10). No refill. Substitution is permissible. -- Bill Garces MD
--- NOTE | 2016-09-29 11:13 | ED DISCHARGE INSTRUCTIONS ---
Patient: BHAVIN FAITH General Instructions [facility] VisitID: [id number] [place] [address] 41y, F Registration Date/Time: 09/26/2016 Palpitations and dizziness: Resolved. INSTRUCTIONS No strenuous activity. Rest. Avoid stimulants (such as cigarettes, coffee, cold medicines, sinus medicines, street drugs). Warnings: Further evaluation is necessary. SEDATIVE MEDICATION: You were given sedative medication during your visit. Do not drive or operate dangerous machinery. GENERAL WARNINGS: Return or contact your physician immediately if your condition worsens or changes unexpectedly, if not improving as expected, or if other problems arise. Your Current Medications: CONTINUE TAKING THE FOLLOWING MEDICATIONS: Methadose Oral. Prescription Medications: Zofran (orally disintegrating tablets) 4 mg: take 1 orally every 6 hours as needed for nausea. Dispense ten (10). No refill. Substitution is permissible. Xanax 0.25 mg: take 1 orally every 6 hours as needed. Dispense ten (10). No refill. Substitution is permissible. Follow-up: Return to the emergency department if worse. Follow up with your doctor in five days. Call for an appointment. Understanding of the discharge instructions verbalized by patient and family. ADDITIONAL INFORMATION Ondansetron Oral disintegrating tablet What is this medicine? ONDANSETRON (on LETI se preet) is used to treat nausea and vomiting caused by chemotherapy. It is also used to prevent or treat nausea and vomiting after surgery. How should I use this medicine? These tablets are made to dissolve in the mouth. Do not try to push the tablet through the foil backing. With dry hands, peel away the foil backing and gently remove the tablet. Place the tablet in the mouth and allow it to dissolve, then swallow. While you may take these tablets with water, it is not necessary to do so. Talk to your runway model regarding the use of this medicine in children. Special care may be needed. What side effects may I notice from receiving this medicine? Side effects that you should report to your doctor or health career professional as soon as possible: allergic reactions like skin rash, itching or hives, swelling of the face, lips, or tongue breathing problems dizziness fast or irregular heartbeat feeling faint or lightheaded, falls fever and chills swelling of the hands and feet tightness in the chest Side effects that usually do not require medical attention (report to your doctor or health career professional if they continue or are bothersome): constipation or diarrhea headache What may interact with this medicine? Do not take this medicine with any of the following medications: -apomorphine -cisapride -dofetilide -dronedarone -pimozide -thioridazine -ziprasidone This medicine may also interact with the following medications: -carbamazepine -phenytoin -rifampicin -tramadol -other medicines that prolong the QT interval (cause an abnormal heart rhythm) What if I miss a dose? If you miss a dose, take it as soon as you can. If it is almost time for your next dose, take only that dose. Do not take double or extra doses. Where should I keep my medicine? Keep out of the reach of children. Store between 2 and 30 degrees C (36 and 86 degrees F). Throw away any unused medicine after the expiration date. What should I tell my health care provider before I take this medicine? They need to know if you have any of these conditions: heart disease history of irregular heartbeat liver disease low levels of magnesium or potassium in the blood an unusual or allergic reaction to ondansetron, granisetron, other medicines, foods, dyes, or preservatives or trying to get breast-feeding What should I watch for while using this medicine? Check with your doctor or health career professional as soon as you can if you have any sign of an allergic reaction. Alprazolam Oral tablet What is this medicine? ALPRAZOLAM (al PRAY dia [place]) is a benzodiazepine. It is used to treat anxiety and panic attacks. How should I use this medicine? Take this medicine by mouth with a glass of water. Follow the directions on the prescription label. Take your medicine at regular intervals. Do not take it more often than directed. If you have been taking this medicine regularly for some time, do not suddenly stop taking it. You must gradually reduce the dose or you may get severe side effects. Ask your doctor or health career professional for advice. Even after you stop taking this medicine it can still affect your body for several days. Talk to your runway model regarding the use of this medicine in children. Special care may be needed. What side effects may I notice from receiving this medicine? Side effects that you should report to your doctor or health career professional as soon as possible: allergic reactions like skin rash, itching or hives, swelling of the face, lips, or tongue confusion, forgetfulness depression difficulty sleeping difficulty speaking feeling faint or lightheaded, falls mood changes, excitability or aggressive behavior muscle cramps trouble passing urine or change in the amount of urine unusually weak or tired Side effects that usually do not require medical attention (report to your doctor or health career professional if they continue or are bothersome): change in sex drive or performance changes in appetite What may interact with this medicine? Do not take this medicine with any of the following medications: certain medicines for HIV infection or AIDS ketoconazole itraconazole This medicine may also interact with the following medications: control pills certain macrolide antibiotics like clarithromycin, erythromycin, troleandomycin cimetidine cyclosporine ergotamine grapefruit juice herbal or dietary supplements like kava kava, melatonin, dehydroepiandrosterone, DHEA, [place]'s Wort or valerian imatinib, [id number] isoniazid levodopa medicines for depression, anxiety, or psychotic disturbances prescription pain medicines rifampin, rifapentine, or rifabutin some medicines for blood pressure or heart problems some medicines for seizures like carbamazepine, oxcarbazepine, phenobarbital, phenytoin, primidone What if I miss a dose? If you miss a dose, take it as soon as you can. If it is almost time for your next dose, take only that dose. Do not take double or extra doses. Where should I keep my medicine? Keep out of the reach of children. This medicine can be abused. Keep your medicine in a safe place to protect it from theft. Do not share this medicine with anyone. Selling or giving away this medicine is dangerous and against the law. Store at room temperature between 20 and 25 degrees C (68 and 77 degrees F). Throw away any unused medicine after the expiration date. What should I tell my health care provider before I take this medicine? They need to know if you have any of these conditions: an alcohol or drug abuse problem bipolar disorder, depression, psychosis or other mental health conditions glaucoma kidney or liver disease lung or breathing disease myasthenia gravis Parkinson's disease porphyria seizures or a history of seizures suicidal thoughts an unusual or allergic reaction to alprazolam, other benzodiazepines, foods, dyes, or preservatives or trying to get breast-feeding What should I watch for while using this medicine? Visit your doctor or health career professional for regular checks on your progress. Your body can become dependent on this medicine. Ask your doctor or health career professional if you still need to take it. You may get drowsy or dizzy. Do not drive, use machinery, or do anything that needs mental alertness until you know how this medicine affects you. To reduce the risk of dizzy and fainting spells, do not stand or sit up quickly, especially if you are an older patient. Alcohol may increase dizziness and drowsiness. Avoid alcoholic drinks. Do not treat yourself for coughs, colds or allergies without asking your doctor or health career professional for advice. Some ingredients can increase possible side effects. You have been given the following additional information: Ondansetron Oral disintegrating tablet Alprazolam Oral tablet No strenuous activity. Rest. (Electronically signed by Bill Garces MD 09/29/2016 11:13)
--- NOTE | 2016-09-29 11:13 | ED MAR SUMMARY ---
..... Medication Administration Record Merged With [facility] [address] [place] [address] Patient: BHAVIN FAITH Visit ID: [id number] 41y, F Weight: 90.2 kg Height/Length: 67 in BMI: 31.2 ALLERGIES: Ultram Given 22:46 09/26/2016 Haley Su, Medication Administered: ZOFRAN ODT [PO] (ONDANSETRON), Dose: 4 mg Oral Disintegrating Tablets PO. Medication Ordered: Zofran ODT PO 4 mg (NOW). Given 22:47 09/26/2016 Haley Su, Medication Administered: ALPRAZOLAM [PO], Dose: 0.5 mg Tablets PO. Medication Ordered: Alprazolam PO 0.5 mg (NOW).
--- NOTE | 2016-09-29 11:13 | ED MAR SUMMARY ---
..... Medication Administration Record [facility] [address] [place] [address] Patient: BHAVIN FAITH Visit ID: [id number] 41y, F Weight: 90.2 kg Height/Length: 67 in BMI: 31.2 ALLERGIES: Ultram Given 22:46 09/26/2016 Haley Su, Medication Administered: ZOFRAN ODT [PO] (ONDANSETRON), Dose: 4 mg Oral Disintegrating Tablets PO. Medication Ordered: Zofran ODT PO 4 mg (NOW). Given 22:47 09/26/2016 Haley Su, Medication Administered: ALPRAZOLAM [PO], Dose: 0.5 mg Tablets PO. Medication Ordered: Alprazolam PO 0.5 mg (NOW).
--- NOTE | 2016-09-29 11:13 | ED MED RECONCILIATION SUMMARY ---
Patient: BHAVIN FAITH Medication Reconciliation Report [facility] VisitID: [id number] [address] [place] [address] 41y, F Registration Date/Time: 09/26/2016 Weight: 90.2 kg Height/Length: 67 in. BMI: 31.2 ALLERGIES: Ultram The patient's Home Medications are listed below: CONTINUE TAKING THE FOLLOWING MEDICATIONS: Methadose Oral The source(s) of the original Home Medication information: Not obtained. The following Medications were given to the patient in the Emergency Department: Zofran ODT [PO] PO 4 mg, administered: 09/26/2016 10:46:00 PM Alprazolam [PO] PO 0.5 mg, administered: 09/26/2016 10:47:00 PM The following Medications were prescribed to the patient: Zofran (orally disintegrating tablets) 4 mg: take 1 orally every 6 hours as needed for nausea. Dispense ten (10). No refill. Substitution is permissible. -- Bill Garces MD Xanax 0.25 mg: take 1 orally every 6 hours as needed. Dispense ten (10). No refill. Substitution is permissible. -- Bill Garces MD
--- NOTE | 2016-09-29 11:13 | ED DISCHARGE INSTRUCTIONS ---
Patient: BHAVIN FAITH General Instructions [facility] VisitID: [id number] [place] [address] 41y, F Registration Date/Time: 09/26/2016 Palpitations and dizziness: Resolved. INSTRUCTIONS No strenuous activity. Rest. Avoid stimulants (such as cigarettes, coffee, cold medicines, sinus medicines, street drugs). Warnings: Further evaluation is necessary. SEDATIVE MEDICATION: You were given sedative medication during your visit. Do not drive or operate dangerous machinery. GENERAL WARNINGS: Return or contact your physician immediately if your condition worsens or changes unexpectedly, if not improving as expected, or if other problems arise. Your Current Medications: CONTINUE TAKING THE FOLLOWING MEDICATIONS: Methadose Oral. Prescription Medications: Zofran (orally disintegrating tablets) 4 mg: take 1 orally every 6 hours as needed for nausea. Dispense ten (10). No refill. Substitution is permissible. Xanax 0.25 mg: take 1 orally every 6 hours as needed. Dispense ten (10). No refill. Substitution is permissible. Follow-up: Return to the emergency department if worse. Follow up with your doctor in five days. Call for an appointment. Understanding of the discharge instructions verbalized by patient and family. ADDITIONAL INFORMATION Ondansetron Oral disintegrating tablet What is this medicine? ONDANSETRON (on LETI se preet) is used to treat nausea and vomiting caused by chemotherapy. It is also used to prevent or treat nausea and vomiting after surgery. How should I use this medicine? These tablets are made to dissolve in the mouth. Do not try to push the tablet through the foil backing. With dry hands, peel away the foil backing and gently remove the tablet. Place the tablet in the mouth and allow it to dissolve, then swallow. While you may take these tablets with water, it is not necessary to do so. Talk to your pile driver engineer regarding the use of this medicine in children. Special care may be needed. What side effects may I notice from receiving this medicine? Side effects that you should report to your doctor or health director critical care as soon as possible: allergic reactions like skin rash, itching or hives, swelling of the face, lips, or tongue breathing problems dizziness fast or irregular heartbeat feeling faint or lightheaded, falls fever and chills swelling of the hands and feet tightness in the chest Side effects that usually do not require medical attention (report to your doctor or health director critical care if they continue or are bothersome): constipation or diarrhea headache What may interact with this medicine? Do not take this medicine with any of the following medications: -apomorphine -cisapride -dofetilide -dronedarone -pimozide -thioridazine -ziprasidone This medicine may also interact with the following medications: -carbamazepine -phenytoin -rifampicin -tramadol -other medicines that prolong the QT interval (cause an abnormal heart rhythm) What if I miss a dose? If you miss a dose, take it as soon as you can. If it is almost time for your next dose, take only that dose. Do not take double or extra doses. Where should I keep my medicine? Keep out of the reach of children. Store between 2 and 30 degrees C (36 and 86 degrees F). Throw away any unused medicine after the expiration date. What should I tell my health care provider before I take this medicine? They need to know if you have any of these conditions: heart disease history of irregular heartbeat liver disease low levels of magnesium or potassium in the blood an unusual or allergic reaction to ondansetron, granisetron, other medicines, foods, dyes, or preservatives or trying to get breast-feeding What should I watch for while using this medicine? Check with your doctor or health director critical care as soon as you can if you have any sign of an allergic reaction. Alprazolam Oral tablet What is this medicine? ALPRAZOLAM (al PRAY dia [place]) is a benzodiazepine. It is used to treat anxiety and panic attacks. How should I use this medicine? Take this medicine by mouth with a glass of water. Follow the directions on the prescription label. Take your medicine at regular intervals. Do not take it more often than directed. If you have been taking this medicine regularly for some time, do not suddenly stop taking it. You must gradually reduce the dose or you may get severe side effects. Ask your doctor or health director critical care for advice. Even after you stop taking this medicine it can still affect your body for several days. Talk to your pile driver engineer regarding the use of this medicine in children. Special care may be needed. What side effects may I notice from receiving this medicine? Side effects that you should report to your doctor or health director critical care as soon as possible: allergic reactions like skin rash, itching or hives, swelling of the face, lips, or tongue confusion, forgetfulness depression difficulty sleeping difficulty speaking feeling faint or lightheaded, falls mood changes, excitability or aggressive behavior muscle cramps trouble passing urine or change in the amount of urine unusually weak or tired Side effects that usually do not require medical attention (report to your doctor or health director critical care if they continue or are bothersome): change in sex drive or performance changes in appetite What may interact with this medicine? Do not take this medicine with any of the following medications: certain medicines for HIV infection or AIDS ketoconazole itraconazole This medicine may also interact with the following medications: control pills certain macrolide antibiotics like clarithromycin, erythromycin, troleandomycin cimetidine cyclosporine ergotamine grapefruit juice herbal or dietary supplements like kava kava, melatonin, dehydroepiandrosterone, DHEA, [place]'s Wort or valerian imatinib, [id number] isoniazid levodopa medicines for depression, anxiety, or psychotic disturbances prescription pain medicines rifampin, rifapentine, or rifabutin some medicines for blood pressure or heart problems some medicines for seizures like carbamazepine, oxcarbazepine, phenobarbital, phenytoin, primidone What if I miss a dose? If you miss a dose, take it as soon as you can. If it is almost time for your next dose, take only that dose. Do not take double or extra doses. Where should I keep my medicine? Keep out of the reach of children. This medicine can be abused. Keep your medicine in a safe place to protect it from theft. Do not share this medicine with anyone. Selling or giving away this medicine is dangerous and against the law. Store at room temperature between 20 and 25 degrees C (68 and 77 degrees F). Throw away any unused medicine after the expiration date. What should I tell my health care provider before I take this medicine? They need to know if you have any of these conditions: an alcohol or drug abuse problem bipolar disorder, depression, psychosis or other mental health conditions glaucoma kidney or liver disease lung or breathing disease myasthenia gravis Parkinson's disease porphyria seizures or a history of seizures suicidal thoughts an unusual or allergic reaction to alprazolam, other benzodiazepines, foods, dyes, or preservatives or trying to get breast-feeding What should I watch for while using this medicine? Visit your doctor or health director critical care for regular checks on your progress. Your body can become dependent on this medicine. Ask your doctor or health director critical care if you still need to take it. You may get drowsy or dizzy. Do not drive, use machinery, or do anything that needs mental alertness until you know how this medicine affects you. To reduce the risk of dizzy and fainting spells, do not stand or sit up quickly, especially if you are an older patient. Alcohol may increase dizziness and drowsiness. Avoid alcoholic drinks. Do not treat yourself for coughs, colds or allergies without asking your doctor or health director critical care for advice. Some ingredients can increase possible side effects. You have been given the following additional information: Ondansetron Oral disintegrating tablet Alprazolam Oral tablet No strenuous activity. Rest. (Electronically signed by Bill Garces MD 09/29/2016 11:13)
== END 2016-09-27 00:29 | disposition home or self-care (01) ==
LOC: ED SRH 21:27
DX: R00.2 Palpitations (principal); R42 Dizziness and giddiness; R11.0 Nausea; F17.210 Nicotine dependence, cigarettes, uncomplicated

== ENCOUNTER 2016-12-05 21:27 | Emergency (ER) | payer OTHER ==
--- NOTE | 2016-12-05 23:32 | DIAGNOSTIC IMAGING REPORT ---
PROCEDURE: XR CHEST 2 VIEW INDICATION: CHEST PAIN TECHNIQUE: PA and lateral views. COMPARISON: None. FINDINGS: Allowing for overlying wires and electrodes, lungs are clear. Heart is of normal size. There is a moderate hiatal hernia. Thorax is normal. IMPRESSION: 1. Moderate hiatal hernia. 2. Otherwise negative chest.
--- NOTE | 2016-12-05 23:56 | DIAGNOSTIC IMAGING REPORT ---
PROCEDURE: CTA THORAX WITH CONTRAST INDICATION: Epigastric chest pain. Elevated D-dimer (1.18). TECHNIQUE: 84 ml of Isovue 370 was injected intravenously and axial images were obtained of the entire thorax with 3D sagittal and coronal MIP reconstructions. COMPARISON: Compared to chest x-rays earlier today (12/05/2016), and on 09/26/2016 and 11/25/2010. FINDINGS: There is a moderate to large hiatal hernia with moderate ingested material in the stomach. Lungs are clear. Pulmonary vessels are normal and there is no evidence of pulmonary embolus. Heart is of normal size. IMPRESSION: 1. Moderate to large hiatal hernia with ingested material in the stomach. 2. Otherwise negative CT pulmonary arteriogram. No evidence of pulmonary embolus. 3. Findings discussed with Dr. Bandar Farley. All CT scans at this facility use dose modulation, iterative reconstruction, and/or weight-based dosing when appropriate to reduce radiation dose to as low as reasonably achievable.
--- NOTE | 2016-12-06 00:20 | ED ORDER SUMMARY ---
..... Patient: BHAVIN FAITH OrderSheet [facility] VisitID: [id number] [place] [address] 41y, F Registration Date/Time: 12/05/2016 ORDER SHEET Weight: 87.9 kg (stated) Allergies: Ultram GENERAL ORDERS: Chest 2V Urgent (21:37 12/05/2016 Kathrin BEYER) (Ack 21:58 SRetim) (22:38 MCampbell) Primary Special Education Teacher (Continuous) (21:38 12/05/2016 Kathrin BEYER) (Ack 21:58 SRetim) (22:01 EInderbitzen R.N.) CBC w Diff Urgent (21:38 12/05/2016 Kathrin BEYER) (Ack 21:58 Manny) (22:01 EInderbitzen R.N.) CMP Urgent (21:38 12/05/2016 Kathrin BEYER) (Ack 21:58 SRetim) (22:01 EInderbitzen R.N.) PT with INR Urgent (21:38 12/05/2016 Kathrin BEYER) (Ack 21:58 Manny) (22:01 EInderbitzen R.N.) PTT Urgent (21:38 12/05/2016 Kathrin BEYER) (Ack 21:58 Manny) (22:01 EInderbitzen R.N.) D-Dimer Urgent (21:38 12/05/2016 Kathrin BEYER) (Ack 21:58 Manny) (22:01 EInderbitzen R.N.) Amylase Urgent (21:38 12/05/2016 Kathrin BEYER) (Ack 21:58 Manny) (22:01 EInderbitzen R.N.) Lipase Urgent (21:38 12/05/2016 Kathrin BEYER) (Ack 21:58 Manny) (22:01 EInderbitzen R.N.) BNP Urgent (21:38 12/05/2016 Kathrin BEYER) (Ack 21:58 Manny) (22:01 EInderbitzen R.N.) CPK Urgent (21:38 12/05/2016 Kathrin BEYER) (Ack 21:58 SRetim) (22:01 EInderbitzen R.N.) Troponin-I Urgent (21:38 12/05/2016 Kathrin BEYER) (Ack 21:58 Manny) (22:01 EInderbitzen R.N.) Pulse oximeter (21:38 12/05/2016 Kathrin BEYER) (Ack 21:58 Manny) (22:01 EInderbitzen R.N.) EKG - ER Stat (21:38 12/05/2016 Kathrin BEYER) (Ack 21:58 Manny) (22:01 EInderbitzen R.N.) POC - Urine hCG (23:17 12/05/2016 Kathrin BEYER) (Ack 23:20 Manny) (23:24 EInderbitzen R.N.) CTA Thorax w Cont (No) (See report) Urgent (23:18 12/05/2016 Kathrin BEYER) (Ack 23:20 Manny) (23:41 RFay) MEDICATION ORDERS: IV FLUIDS: IV Saline Lock (21:38 12/05/2016 Kathrin BEYER) (22:02 EInderbitzen R.N.) IV NS : initial bolus 500 mL (1000 mL/hr), then 125 mL/hr for 4h (NOW); Urgent (23:16 12/05/2016 Kathrin BEYER) (23:25 EInderbitzen R.N.) ORDER SHEET NOTES: [Electronically signed by Alyce Pittman R.N. (00:27 12/06/2016)] [Electronically signed by Bandar Farley MD (11:00 12/08/2016)] [Electronically locked/signed by Alyce Pittman R.N. (00:27 12/06/2016)]
--- NOTE | 2016-12-06 00:20 | ED CLINICAL REPORT ---
Clinical Report - Physicians/Mid Levels [facility] [address] [place] [address] 12/05/2016 21:29 Patient: BHAVIN FAITH Time Seen: 21:36. Arrived- By private vehicle. Historian- patient. HISTORY OF PRESENT ILLNESS Chief Complaint: PAIN UPON INSPIRATION. This started about 1 week ago and is still present. It was gradual in onset and has been intermittent and waxing/waning. The dyspnea is described as moderate. The patient has had scant amounts of sputum and a cough. No fever, sweating episodes, wheezing or chills. She has had chest discomfort (with inspiration). (Symptoms started Thursday with tighness in chest, diagnosed with virus by primary care, went back to MD on Thursday, had chest x ray, maybe an early pneumonia, was told to go to ER if she felt worse. Pain mostly when she is exhaling). She has had a nonproductive cough (minimally)). Recent medical care: The patient was seen recently at another facility in a clinic. Seen for similar symptoms. Evaluation/treatment: CXR. Diagnosis: bronchitis. REVIEW OF SYSTEMS The patient has had chills and experienced sweats. No fever, calf pain, pedal edema, palpitations or abdominal pain. No constipation, diarrhea, nausea, vomiting or urinary problems. All systems otherwise negative, except as recorded above. PAST HISTORY Problems: Pneumonia. Myofascial Strain. Additional Surgeries: Dental Surgery. Tooth implant. Medications: Methadone HCl Oral. Iron Oral. Pantoprazole Sodium Oral. Doxycycline Hyclate Oral. Allergies: Ultram. SOCIAL HISTORY Current every day heavy tobacco smoker (cigarette)- less than 1 pack per day. No alcohol use or drug use. FAMILY HISTORY Denies family medical history. ADDITIONAL NOTES The nursing notes have been reviewed. PHYSICAL EXAM Vital Signs: 12/05/2016 21:33 BP: 145/88. HR: 79. RR: 18. O2 saturation: 100%. Temp: 98.4 F. Pain level now: 5/10. Have been reviewed. Appearance: Alert. No acute distress. Eyes: Pupils equal, round and reactive to light. ENT: Pharynx normal. Uvula midline. Neck: Normal inspection. No jugular venous distention. Neck supple. CVS: Normal heart rate and rhythm. Heart sounds normal. Respiratory: No respiratory distress. Breath sounds normal. Abdomen: Soft and nontender. No organomegaly. Back: Normal inspection. Skin: Skin warm and dry. Normal skin color. Normal skin turgor. Extremities: Extremities exhibit normal ROM. No calf tenderness. No lower extremity edema. Neuro: No motor deficit. No sensory deficit. LABS, X-RAYS, AND EKG EKG: Normal EKG. Rate: 76. Prior EKG unavailable. The study has been independently viewed by me. Chest X-ray: (IMPRESSION: 1. Moderate hiatal hernia. 2. Otherwise negative chest.). The X-rays were interpreted contemporaneously by me and discussed with the radiologist. Chest CT: (IMPRESSION: 1. Moderate to large hiatal hernia with ingested material in the stomach. 2. Otherwise negative CT pulmonary arteriogram. No evidence of pulmonary embolus.). The study was interpreted contemporaneously by me and discussed with the radiologist. Laboratory Tests: CBC w Diff: (JULIANNA: 12/05/2016 21:55) ( MsgRcvd 12/05/2016 22:33) Final results Test Result Flag Units (Reference) WHITE BLOOD COUNT 7.5 K/uL (4.5-11.5) RED BLOOD COUNT 4.60 M/uL (4.00-5.20) HEMOGLOBIN 9.8 L gm/dL (12.0-16.0) HEMATOCRIT 30.8 L % (36.0-46.0) MEAN CELL VOLUME 67 L fL (80-100) MEAN CORPUSCULAR HGB 21 L pg (26-34) MEAN CORPUSCULAR HGB CONC 32 g/dL (31-37) RED CELL DISTRIBUTION WIDTH 19.7 H % (11.6-14.8) PLATELET COUNT 568 H K/uL (150-400) NEUTROPHIL % 58.3 % (50-75) LYMPH % 30.2 % (25-40) MONO % 8.1 % (3-14) EOSINOPHIL % 2.2 % (0-4) BASOPHIL % 1.2 % (0-2) RBC MORPHOLOGY 2+ HYPOCHROMIA~~2+ MICROCYTOSIS [id number]: (JULIANNA: 12/05/2016 21:55) ( [facility] 12/05/2016 23:06) Final results Test Result Flag Units (Reference) D-DIMER QUANTITATIVE 1.13 H ug/mLFEU (0.27-0.52) The primary value of this quantitative assay relates toits negative predictive value (i.e. exclusion) of pulmonaryembolism/deep vein thrombosis/DIC.Elevated levels of d-dimer may also occur with:, age, cancer, inflammation, liver disease,post-op, infection, hematoma, coronary disease, peripheralarteriopathy, bleeding disorders and thrombolytic treatment.Results should be correlated with other clinical andradiological data.Testing Methodology: Latex Immunoassay PT with INR: (JULIANNA: 12/05/2016 21:55) ( [facility] 12/05/2016 22:12) Final results Test Result Flag Units (Reference) INR 0.9 (0.8-1.2) Low Intensity Therapy: INR 1.5-2.0 PT range 18.5-23.1Mod.Intensity Therapy: INR 2.0-3.0 PT range 23.1-31.5High Intensity Therapy: INR 2.5-3.5 PT range 27.4-35.5High Intensity Therapy 2: INR 3.0-4.0 PT range 31.5-39.3 APTT 27 SECONDS (24-34) BNP: (JULIANNA: 12/05/2016 21:55) ( [facility] 12/05/2016 22:27) Final results Test Result Flag Units (Reference) B-TYPE NATRIURETIC PEPTIDE 12.5 pg/ml (5-100) CMP: (JULIANNA: 12/05/2016 21:55) ( [facility] 12/05/2016 22:21) Final results Test Result Flag Units (Reference) GLUCOSE 112 H mg/dL (70-110) BUN 17 mg/dL (7-18) CREATININE 0.7 mg/dL (0.6-1.3) Estimated GFR >60 mL/min Estimated GFR- >60 mL/min Note: Persistent reduction over 3 months in eGFR<60 mL/min/1.73 m2 defines CKD. Patients with eGFR values>=60 mL/min/1.73 m2 may also have CKD if evidence ofpersistent proteinuria. Additional information may be foundat www.kidney.org. SODIUM 139 mmol/L (136-145) POTASSIUM 3.9 mmol/L (3.5-5.1) CHLORIDE 104 mmol/L (98-107) CARBON DIOXIDE 28 mmol/L (21-32) CALCIUM 9.0 mg/dL (8.5-10.1) TOTAL PROTEIN 7.4 g/dL (6.4-8.2) ALBUMIN 3.7 g/dL (3.3-5.0) BILIRUBIN, TOTAL 0.2 mg/dL (0.0-1.0) ALKALINE PHOSPHATASE 82 U/L (46-116) AST (SGOT) 17 U/L (15-37) ALT (SGPT) 26 U/L (12-78) LIPASE 130 U/L (73-393) AMYLASE 34 U/L (25-115) CPK 78 U/L (24-260) TROPONIN I <0.05 L ng/mL (0.00-1.5) TROPONIN REFERENCE RANGE:<0.1 NEGATIVE0.1-1.5 INDETERMINANT>1.5 POSITIVE . PROGRESS AND PROCEDURES Course of Care: Patient is stable. Patient/family counseled. Old medical records reviewed. Disposition: Discharged. Condition: stable. CLINICAL IMPRESSION Hiatal hernia. INSTRUCTIONS Avoid alcohol and NSAIDS. Examples of NSAIDS include aspirin, ibuprofen (Advil) and naproxen (Aleve). Avoid salty and spicy foods. Do not smoke. Seek medical help to quit smoking. Warnings: Further evaluation is necessary. GENERAL WARNINGS: Return or contact your physician immediately if your condition worsens or changes unexpectedly, if not improving as expected, or if other problems arise. Your Current Medications: CONTINUE TAKING THE FOLLOWING MEDICATIONS: Doxycycline Hyclate Oral. Iron Oral. Methadone HCl Oral. Pantoprazole Sodium Oral. Follow-up: Follow up with a oracle business analyst on December 17 as scheduled. Understanding of the discharge instructions verbalized by patient and family. Follow-up with: [facility], , , [address] [place] [address], , [place] [address] Follow up. Call for the next available appointment. (Electronically signed by Bandar Farley MD 12/08/2016 11:00)
--- NOTE | 2016-12-06 00:20 | ED NURSING NOTES ---
Clinical Report - Nurses [facility] [address] [place] [address] 12/05/2016 21:29 Patient: BHAVIN FAITH TRIAGE Triage time 21:Dec 05 2016. Acuity: LEVEL 3. Chief Complaint: (pain with deep breathing). 21:33 12/05/16. --21:38 Alyce Pittman R.N. 21:33 12/05/16. BP: 145/88. HR: 79. RR: 18. O2 saturation: 100%. Temp: 98.4 F. Pain level now: 01/07. --21:38 Alyce Pittman R.N. Weight: 87.9 kg stated. Height/Length: 67 inches Per Patient. BMI: 30.4. --21:33 Alyce Pittman R.N. Medications Doxycycline Hyclate Oral. --21:35 Alyce Pittman R.N. Pantoprazole Sodium Oral. --21:35 Alyce Pittman R.N. Iron Oral. --21:35 Alyce Pittman R.N. Methadone HCl Oral. --21:35 Alyce Pittman R.N. Medication/allergy information source: the patient. --21:38 Alyce Pittman R.N. Allergies Ultram. --21:35 Alyce Pittman R.N. History Arrived by private vehicle. Historian: patient. Accompanied by family. This started just prior to arrival. ( Symptoms started Thursday with tighness in chest, diagnosed with virus by primary care, went back to [place] on Thursday, had chest x ray, maybe an early pneumonia, was told to go to ER if she felt worse. Pain mostly when she is exhaling). She has had a nonproductive cough (minimally). Treatment CLAIMS TECHNICIAN: None. SOCIAL HX: Heavy tobacco smoker (cigarette)- less than 1 pack per day. No alcohol use or drug use. No infectious disease exposure. ABUSE ASSESSMENT: No report of abuse. SELF HARM ASSESSMENT: A self harm assessment was performed. The patient answered "no" to the question "Have you recently felt down, depressed, or hopeless?", "Have you noticed less interest or pleasure in doing things?", "Do you have thoughts of harming or killing yourself?", "Are you here because you tried to hurt yourself?", "Have you ever tried to hurt yourself before today?", "Have you recently had thoughts about harming or killing others?" and "Do you have any dangerous items in your possession?". NUTRITIONAL RISK ASSESSMENT: The nutritional risk assessment revealed no deficiencies. FUNCTIONAL ASSESSMENT: Functional assessment: no impairments noted. LEARNING NEEDS ASSESSMENT: The learning needs assessment revealed no barriers. SKIN INTEGRITY ASSESSMENT: Skin integrity risk assessment completed. No skin integrity risk identified. --21:38 Alyce Pittman R.N. PROBLEMS: Pneumonia. Myofascial Strain. --21:35 Alyce Pittman R.N. ADDITIONAL SURGERIES: Dental Surgery. Tooth implant. --21:35 Alyce Pittman R.N. Interventions ID band on patient. --21:38 Alyce Pittman R.N. PHYSICAL ASSESSMENT 21:41 12/05/16. Ambulatory to room. GENERAL / NEURO / PSYCH: Alert. Oriented X 4. Appears in no acute distress. HEENT: Pupils equal, round and reactive to light. No facial asymmetry noted. Mucous membranes are pink. RESPIRATORY: Respirations not labored. Breath sounds within normal limits. CVS: Capillary refill less than 2 seconds. Pulses within normal limits. GI / : Abdomen soft and nontender. SKIN: Skin intact. Skin is warm and dry. Normal skin turgor. --21:41 Alyce Pittman R.N. NURSING PROGRESS NOTES 21:41 12/05/16. The initial plan of care for this patient includes an assessment with efforts to address the presence of pain; impairment of the respiratory system. This plan of care was discussed with the patient. Patient gowned. Reassurance given. Two patient identifiers checked. Call light placed in reach. Side rails up x 1. Bed placed in lowest position. Brakes of bed on. Patient ready for evaluation. --21:41 Alyce Pittman R.N. 21:55 12/05/2016 Site #1 started via IV in the left antecubital space with an 20g angiocath, with aseptic technique and good blood return; one attempt. Blood drawn: rainbow set. Labeled in the presence of the patient and sent to the lab. Saline lock flushed with 10 mL saline. --22:02 Alyce Pittman R.N. EKG time: (2150 PM). EKG was ordered, performed by a tech and shown to the ED physician. --22:16 Frances Mcgee 22:39 12/05/16. Cardiac rhythm: normal sinus rhythm. The patient is calm and resting quietly. Overall patient status is the same- she states feels the same. Patient walked to radiology with tech. (and returned). --22:39 Alyce Pittman R.N. 22:39 12/05/16. BP: 140/89. HR: 74. RR: 18. O2 saturation: 99%. Pain level now 5/10. --22:39 Alyce Pittman R.N. 23:12 12/05/16. BP: 140/89. HR: 78. RR: 18. O2 saturation: 96%. Pain level now 5/10. --23:12 Alyce Pittman R.N. 23:12 12/05/16. Cardiac rhythm: normal sinus rhythm. The patient is calm and resting quietly. Overall patient status is the same. Patient waiting for disposition. --23:12 Alyce Pittman R.N. 23:24 12/05/16. Urine test negative. inventory control specialist check passed. --23:24 Alyce Pittman R.N. 23:25 12/05/2016 Started bag #1 1000 mL IV Fluids IV NS (Saline); at 1000 mL/hr over 30 minute(s) via site #1. Allergies verified and confirmed 5 rights. IV patency established. IV site checked: no pain, redness, or swelling. IV flushed thoroughly pre- and post-medication administration. --23:25 Alyce Pittman R.NShefali 00:18 12/06/16. Cardiac rhythm: normal sinus rhythm. The patient is calm and resting quietly. Overall patient status is the same- she states feels the same. Patient waiting for CT results and disposition. --00:18 Alyce Pittman R.NShefali 00:18 12/06/16. BP: 124/75. HR: 71. RR: 18. O2 saturation: 97%. Pain level now 12/08. --00:18 Alyce Pittman R.N. DISPOSITION / DISCHARGE 00:12/06/2016 Site #1 removed upon discharge. Catheter intact. Pressure dressing applied. --00:26 Alyce Pittman R.N. 00:12/06/2016 IV Fluids IV NS Discontinued: bag #1 discontinued upon discharge. Total amount infused: 600 mL. IV patency established. IV site checked: no pain, redness, or swelling. IV flushed thoroughly. --00:25 Alyce Pittman R.NShefali 00:12/06/16. Departure time: 00:Dec 06 2016. Condition at departure: improved and stable. The goals identified in the patient's plan of care were met. No learning barriers present. Reviewed referral to a pulley maintainer and primary care physician for followup. Summary of care provided to patient via paper. Patient verbalized understanding. Written instructions provided in Guyanese. The patient was discharged home and accompanied by family. She left the Emergency Department ambulatory and via private vehicle. Family member driving. FALL RISK ASSESSMENT: Fall risk assessment completed. No fall risk identified. --00:26 Alyce Pittman R.NShefali 00:12/06/16. BP: 124/75. HR: 71. RR: 18. O2 saturation: 97%. Pain level now 12/08. 23:11 12/05/16. BP: 140/89. HR: 78. RR: 18. O2 saturation: 96%. Pain level now 01/07. 22:39 12/05/16. BP: 140/89. HR: 74. RR: 18. O2 saturation: 99%. Pain level now 01/07. 21:33 12/05/16. BP: 145/88. HR: 79. RR: 18. O2 saturation: 100%. Temp: 98.4 F. Pain level now: 01/07. --00:26 Alyce Pittman R.N. Locked/Released at 12/06/2016 0:27 by Alyce Pittman R.N.
--- NOTE | 2016-12-06 00:20 | ED CLINICAL REPORT ---
Clinical Report - Physicians/Mid Levels [facility] [address] [place] [address] 12/05/2016 21:29 Patient: BHAVIN FAITH Time Seen: 21:36. Arrived- By private vehicle. Historian- patient. HISTORY OF PRESENT ILLNESS Chief Complaint: PAIN UPON INSPIRATION. This started about 1 week ago and is still present. It was gradual in onset and has been intermittent and waxing/waning. The dyspnea is described as moderate. The patient has had scant amounts of sputum and a cough. No fever, sweating episodes, wheezing or chills. She has had chest discomfort (with inspiration). (Symptoms started Thursday with tighness in chest, diagnosed with virus by primary care, went back to MD on Thursday, had chest x ray, maybe an early pneumonia, was told to go to ER if she felt worse. Pain mostly when she is exhaling). She has had a nonproductive cough (minimally)). Recent medical care: The patient was seen recently at another facility in a clinic. Seen for similar symptoms. Evaluation/treatment: CXR. Diagnosis: bronchitis. REVIEW OF SYSTEMS The patient has had chills and experienced sweats. No fever, calf pain, pedal edema, palpitations or abdominal pain. No constipation, diarrhea, nausea, vomiting or urinary problems. All systems otherwise negative, except as recorded above. PAST HISTORY Problems: Pneumonia. Myofascial Strain. Additional Surgeries: Dental Surgery. Tooth implant. Medications: Methadone HCl Oral. Iron Oral. Pantoprazole Sodium Oral. Doxycycline Hyclate Oral. Allergies: Ultram. SOCIAL HISTORY Current every day heavy tobacco smoker (cigarette)- less than 1 pack per day. No alcohol use or drug use. FAMILY HISTORY Denies family medical history. ADDITIONAL NOTES The nursing notes have been reviewed. PHYSICAL EXAM Vital Signs: 12/05/2016 21:33 BP: 145/88. HR: 79. RR: 18. O2 saturation: 100%. Temp: 98.4 F. Pain level now: 5/10. Have been reviewed. Appearance: Alert. No acute distress. Eyes: Pupils equal, round and reactive to light. ENT: Pharynx normal. Uvula midline. Neck: Normal inspection. No jugular venous distention. Neck supple. CVS: Normal heart rate and rhythm. Heart sounds normal. Respiratory: No respiratory distress. Breath sounds normal. Abdomen: Soft and nontender. No organomegaly. Back: Normal inspection. Skin: Skin warm and dry. Normal skin color. Normal skin turgor. Extremities: Extremities exhibit normal ROM. No calf tenderness. No lower extremity edema. Neuro: No motor deficit. No sensory deficit. LABS, X-RAYS, AND EKG EKG: Normal EKG. Rate: 76. Prior EKG unavailable. The study has been independently viewed by me. Chest X-ray: (IMPRESSION: 1. Moderate hiatal hernia. 2. Otherwise negative chest.). The X-rays were interpreted contemporaneously by me and discussed with the radiologist. Chest CT: (IMPRESSION: 1. Moderate to large hiatal hernia with ingested material in the stomach. 2. Otherwise negative CT pulmonary arteriogram. No evidence of pulmonary embolus.). The study was interpreted contemporaneously by me and discussed with the radiologist. Laboratory Tests: CBC w Diff: (JULIANNA: 12/05/2016 21:55) ( MsgRcvd 12/05/2016 22:33) Final results Test Result Flag Units (Reference) WHITE BLOOD COUNT 7.5 K/uL (4.5-11.5) RED BLOOD COUNT 4.60 M/uL (4.00-5.20) HEMOGLOBIN 9.8 L gm/dL (12.0-16.0) HEMATOCRIT 30.8 L % (36.0-46.0) MEAN CELL VOLUME 67 L fL (80-100) MEAN CORPUSCULAR HGB 21 L pg (26-34) MEAN CORPUSCULAR HGB CONC 32 g/dL (31-37) RED CELL DISTRIBUTION WIDTH 19.7 H % (11.6-14.8) PLATELET COUNT 568 H K/uL (150-400) NEUTROPHIL % 58.3 % (50-75) LYMPH % 30.2 % (25-40) MONO % 8.1 % (3-14) EOSINOPHIL % 2.2 % (0-4) BASOPHIL % 1.2 % (0-2) RBC MORPHOLOGY 2+ HYPOCHROMIA~~2+ MICROCYTOSIS [id number]: (JULIANNA: 12/05/2016 21:55) ( [facility] 12/05/2016 23:06) Final results Test Result Flag Units (Reference) D-DIMER QUANTITATIVE 1.13 H ug/mLFEU (0.27-0.52) The primary value of this quantitative assay relates toits negative predictive value (i.e. exclusion) of pulmonaryembolism/deep vein thrombosis/DIC.Elevated levels of d-dimer may also occur with:, age, cancer, inflammation, liver disease,post-op, infection, hematoma, coronary disease, peripheralarteriopathy, bleeding disorders and thrombolytic treatment.Results should be correlated with other clinical andradiological data.Testing Methodology: Latex Immunoassay PT with INR: (JULIANNA: 12/05/2016 21:55) ( [facility] 12/05/2016 22:12) Final results Test Result Flag Units (Reference) INR 0.9 (0.8-1.2) Low Intensity Therapy: INR 1.5-2.0 PT range 18.5-23.1Mod.Intensity Therapy: INR 2.0-3.0 PT range 23.1-31.5High Intensity Therapy: INR 2.5-3.5 PT range 27.4-35.5High Intensity Therapy 2: INR 3.0-4.0 PT range 31.5-39.3 APTT 27 SECONDS (24-34) BNP: (JULIANNA: 12/05/2016 21:55) ( [facility] 12/05/2016 22:27) Final results Test Result Flag Units (Reference) B-TYPE NATRIURETIC PEPTIDE 12.5 pg/ml (5-100) CMP: (JULIANNA: 12/05/2016 21:55) ( [facility] 12/05/2016 22:21) Final results Test Result Flag Units (Reference) GLUCOSE 112 H mg/dL (70-110) BUN 17 mg/dL (7-18) CREATININE 0.7 mg/dL (0.6-1.3) Estimated GFR >60 mL/min Estimated GFR- >60 mL/min Note: Persistent reduction over 3 months in eGFR<60 mL/min/1.73 m2 defines CKD. Patients with eGFR values>=60 mL/min/1.73 m2 may also have CKD if evidence ofpersistent proteinuria. Additional information may be foundat www.kidney.org. SODIUM 139 mmol/L (136-145) POTASSIUM 3.9 mmol/L (3.5-5.1) CHLORIDE 104 mmol/L (98-107) CARBON DIOXIDE 28 mmol/L (21-32) CALCIUM 9.0 mg/dL (8.5-10.1) TOTAL PROTEIN 7.4 g/dL (6.4-8.2) ALBUMIN 3.7 g/dL (3.3-5.0) BILIRUBIN, TOTAL 0.2 mg/dL (0.0-1.0) ALKALINE PHOSPHATASE 82 U/L (46-116) AST (SGOT) 17 U/L (15-37) ALT (SGPT) 26 U/L (12-78) LIPASE 130 U/L (73-393) AMYLASE 34 U/L (25-115) CPK 78 U/L (24-260) TROPONIN I <0.05 L ng/mL (0.00-1.5) TROPONIN REFERENCE RANGE:<0.1 NEGATIVE0.1-1.5 INDETERMINANT>1.5 POSITIVE . PROGRESS AND PROCEDURES Course of Care: Patient is stable. Patient/family counseled. Old medical records reviewed. Disposition: Discharged. Condition: stable. CLINICAL IMPRESSION Hiatal hernia. INSTRUCTIONS Avoid alcohol and NSAIDS. Examples of NSAIDS include aspirin, ibuprofen (Advil) and naproxen (Aleve). Avoid salty and spicy foods. Do not smoke. Seek medical help to quit smoking. Warnings: Further evaluation is necessary. GENERAL WARNINGS: Return or contact your physician immediately if your condition worsens or changes unexpectedly, if not improving as expected, or if other problems arise. Your Current Medications: CONTINUE TAKING THE FOLLOWING MEDICATIONS: Doxycycline Hyclate Oral. Iron Oral. Methadone HCl Oral. Pantoprazole Sodium Oral. Follow-up: Follow up with a wireless construction manager on December 17 as scheduled. Understanding of the discharge instructions verbalized by patient and family. Follow-up with: [facility], , , [address] [place] [address], , [place] [address] Follow up. Call for the next available appointment. (Electronically signed by Bandar Farley MD 12/08/2016 11:00)
--- NOTE | 2016-12-06 00:20 | ED ORDER SUMMARY ---
..... Patient: BHAVIN FAITH OrderSheet [facility] VisitID: [id number] [place] [address] 41y, F Registration Date/Time: 12/05/2016 ORDER SHEET Weight: 87.9 kg (stated) Allergies: Ultram GENERAL ORDERS: Chest 2V Urgent (21:37 12/05/2016 Kathrin BEYER) (Ack 21:58 SRetim) (22:38 MCampbell) Stock Hanger (Continuous) (21:38 12/05/2016 Kathrin BEYER) (Ack 21:58 SRetim) (22:01 EInderbitzen R.N.) CBC w Diff Urgent (21:38 12/05/2016 Kathrin BEYER) (Ack 21:58 Manny) (22:01 EInderbitzen R.N.) CMP Urgent (21:38 12/05/2016 Kathrin BEYER) (Ack 21:58 SRetim) (22:01 EInderbitzen R.N.) PT with INR Urgent (21:38 12/05/2016 Kathrin BEYER) (Ack 21:58 Manny) (22:01 EInderbitzen R.N.) PTT Urgent (21:38 12/05/2016 Kathrin BEYER) (Ack 21:58 Manny) (22:01 EInderbitzen R.N.) D-Dimer Urgent (21:38 12/05/2016 Kathrin BEYER) (Ack 21:58 Manny) (22:01 EInderbitzen R.N.) Amylase Urgent (21:38 12/05/2016 Kathrin BEYER) (Ack 21:58 Manny) (22:01 EInderbitzen R.N.) Lipase Urgent (21:38 12/05/2016 Kathrin BEYER) (Ack 21:58 Manny) (22:01 EInderbitzen R.N.) BNP Urgent (21:38 12/05/2016 Kathrin BEYER) (Ack 21:58 Manny) (22:01 EInderbitzen R.N.) CPK Urgent (21:38 12/05/2016 Kathrin BEYER) (Ack 21:58 SRetim) (22:01 EInderbitzen R.N.) Troponin-I Urgent (21:38 12/05/2016 Kathrin BEYER) (Ack 21:58 Manny) (22:01 EInderbitzen R.N.) Pulse oximeter (21:38 12/05/2016 Kathrin BEYER) (Ack 21:58 Manny) (22:01 EInderbitzen R.N.) EKG - ER Stat (21:38 12/05/2016 Kathrin BEYER) (Ack 21:58 Manny) (22:01 EInderbitzen R.N.) POC - Urine hCG (23:17 12/05/2016 Kathrin BEYER) (Ack 23:20 Manny) (23:24 EInderbitzen R.N.) CTA Thorax w Cont (No) (See report) Urgent (23:18 12/05/2016 Kathrin BEYER) (Ack 23:20 Manny) (23:41 RFay) MEDICATION ORDERS: IV FLUIDS: IV Saline Lock (21:38 12/05/2016 Kathrin BEYER) (22:02 EInderbitzen R.N.) IV NS : initial bolus 500 mL (1000 mL/hr), then 125 mL/hr for 4h (NOW); Urgent (23:16 12/05/2016 Kathrin BEYER) (23:25 EInderbitzen R.N.) ORDER SHEET NOTES: [Electronically signed by Alyce Pittman R.N. (00:27 12/06/2016)] [Electronically signed by Bandar Farley MD (11:00 12/08/2016)] [Electronically locked/signed by Alcye Pittman R.N. (00:27 12/06/2016)]
--- NOTE | 2016-12-06 00:20 | ED NURSING NOTES ---
Clinical Report - Nurses [facility] [address] [place] [address] 12/05/2016 21:29 Patient: BHAVIN FAITH TRIAGE Triage time 21:Dec 05 2016. Acuity: LEVEL 3. Chief Complaint: (pain with deep breathing). 21:33 12/05/16. --21:38 Alyce Pittman R.N. 21:33 12/05/16. BP: 145/88. HR: 79. RR: 18. O2 saturation: 100%. Temp: 98.4 F. Pain level now: 01/07. --21:38 Alyce Pittman R.N. Weight: 87.9 kg stated. Height/Length: 67 inches Per Patient. BMI: 30.4. --21:33 Alyce Pittman R.N. Medications Doxycycline Hyclate Oral. --21:35 Alyce Pittman R.N. Pantoprazole Sodium Oral. --21:35 Alyce Pittman R.N. Iron Oral. --21:35 Alyce Pittman R.N. Methadone HCl Oral. --21:35 Alyce Pittman R.N. Medication/allergy information source: the patient. --21:38 Alyce Pittman R.N. Allergies Ultram. --21:35 Alyce Pittman R.N. History Arrived by private vehicle. Historian: patient. Accompanied by family. This started just prior to arrival. ( Symptoms started Thursday with tighness in chest, diagnosed with virus by primary care, went back to MD on Thursday, had chest x ray, maybe an early pneumonia, was told to go to ER if she felt worse. Pain mostly when she is exhaling). She has had a nonproductive cough (minimally). Treatment EDGE MOLDER: None. SOCIAL HX: Heavy tobacco smoker (cigarette)- less than 1 pack per day. No alcohol use or drug use. No infectious disease exposure. ABUSE ASSESSMENT: No report of abuse. SELF HARM ASSESSMENT: A self harm assessment was performed. The patient answered "no" to the question "Have you recently felt down, depressed, or hopeless?", "Have you noticed less interest or pleasure in doing things?", "Do you have thoughts of harming or killing yourself?", "Are you here because you tried to hurt yourself?", "Have you ever tried to hurt yourself before today?", "Have you recently had thoughts about harming or killing others?" and "Do you have any dangerous items in your possession?". NUTRITIONAL RISK ASSESSMENT: The nutritional risk assessment revealed no deficiencies. FUNCTIONAL ASSESSMENT: Functional assessment: no impairments noted. LEARNING NEEDS ASSESSMENT: The learning needs assessment revealed no barriers. SKIN INTEGRITY ASSESSMENT: Skin integrity risk assessment completed. No skin integrity risk identified. --21:38 Alyce Pittman R.N. PROBLEMS: Pneumonia. Myofascial Strain. --21:35 Alyce Pittman R.N. ADDITIONAL SURGERIES: Dental Surgery. Tooth implant. --21:35 Alyce Pittman R.N. Interventions ID band on patient. --21:38 Alyce Pittman R.N. PHYSICAL ASSESSMENT 21:41 12/05/16. Ambulatory to room. GENERAL / NEURO / PSYCH: Alert. Oriented X 4. Appears in no acute distress. HEENT: Pupils equal, round and reactive to light. No facial asymmetry noted. Mucous membranes are pink. RESPIRATORY: Respirations not labored. Breath sounds within normal limits. CVS: Capillary refill less than 2 seconds. Pulses within normal limits. GI / : Abdomen soft and nontender. SKIN: Skin intact. Skin is warm and dry. Normal skin turgor. --21:41 Alyce Pittman R.N. NURSING PROGRESS NOTES 21:41 12/05/16. The initial plan of care for this patient includes an assessment with efforts to address the presence of pain; impairment of the respiratory system. This plan of care was discussed with the patient. Patient gowned. Reassurance given. Two patient identifiers checked. Call light placed in reach. Side rails up x 1. Bed placed in lowest position. Brakes of bed on. Patient ready for evaluation. --21:41 Alyce Pittman R.N. 21:55 12/05/2016 Site #1 started via IV in the left antecubital space with an 20g angiocath, with aseptic technique and good blood return; one attempt. Blood drawn: rainbow set. Labeled in the presence of the patient and sent to the lab. Saline lock flushed with 10 mL saline. --22:02 Alyce Pittman R.N. EKG time: (2150 PM). EKG was ordered, performed by a tech and shown to the ED physician. --22:16 Frances Mcgee 22:39 12/05/16. Cardiac rhythm: normal sinus rhythm. The patient is calm and resting quietly. Overall patient status is the same- she states feels the same. Patient walked to radiology with tech. (and returned). --22:39 Alyce Pittman R.N. 22:39 12/05/16. BP: 140/89. HR: 74. RR: 18. O2 saturation: 99%. Pain level now 5/10. --22:39 Alyce Pittman R.N. 23:12 12/05/16. BP: 140/89. HR: 78. RR: 18. O2 saturation: 96%. Pain level now 5/10. --23:12 Alyce Pittman R.N. 23:12 12/05/16. Cardiac rhythm: normal sinus rhythm. The patient is calm and resting quietly. Overall patient status is the same. Patient waiting for disposition. --23:12 Alyce Pittman R.N. 23:24 12/05/16. Urine test negative. rail operations controller check passed. --23:24 Alyce Pittman R.N. 23:25 12/05/2016 Started bag #1 1000 mL IV Fluids IV NS (Saline); at 1000 mL/hr over 30 minute(s) via site #1. Allergies verified and confirmed 5 rights. IV patency established. IV site checked: no pain, redness, or swelling. IV flushed thoroughly pre- and post-medication administration. --23:25 Alyce Pittman R.NShefali 00:18 12/06/16. Cardiac rhythm: normal sinus rhythm. The patient is calm and resting quietly. Overall patient status is the same- she states feels the same. Patient waiting for CT results and disposition. --00:18 Alyce Pittman R.NShefali 00:18 12/06/16. BP: 124/75. HR: 71. RR: 18. O2 saturation: 97%. Pain level now 12/08. --00:18 Alyce Pittman R.N. DISPOSITION / DISCHARGE 00:12/06/2016 Site #1 removed upon discharge. Catheter intact. Pressure dressing applied. --00:26 Alyce Pittman R.N. 00:12/06/2016 IV Fluids IV NS Discontinued: bag #1 discontinued upon discharge. Total amount infused: 600 mL. IV patency established. IV site checked: no pain, redness, or swelling. IV flushed thoroughly. --00:25 Alyce Pittman R.NShefali 00:12/06/16. Departure time: 00:Dec 06 2016. Condition at departure: improved and stable. The goals identified in the patient's plan of care were met. No learning barriers present. Reviewed referral to a bank vault clerk and primary care physician for followup. Summary of care provided to patient via paper. Patient verbalized understanding. Written instructions provided in Guamanian. The patient was discharged home and accompanied by family. She left the Emergency Department ambulatory and via private vehicle. Family member driving. FALL RISK ASSESSMENT: Fall risk assessment completed. No fall risk identified. --00:26 Alyce Pittman R.NShefali 00:12/06/16. BP: 124/75. HR: 71. RR: 18. O2 saturation: 97%. Pain level now 12/08. 23:11 12/05/16. BP: 140/89. HR: 78. RR: 18. O2 saturation: 96%. Pain level now 01/07. 22:39 12/05/16. BP: 140/89. HR: 74. RR: 18. O2 saturation: 99%. Pain level now 01/07. 21:33 12/05/16. BP: 145/88. HR: 79. RR: 18. O2 saturation: 100%. Temp: 98.4 F. Pain level now: 01/07. --00:26 Alyce Pittman R.N. Locked/Released at 12/06/2016 0:27 by Alyce Pittman R.N.
--- NOTE | 2016-12-08 11:00 | ED MAR SUMMARY ---
..... Medication Administration Record [facility] [address] [place] [address] Patient: BHAVIN FAITH Visit ID: [id number] 41y, F Weight: 87.9 kg Height/Length: 67 in BMI: 30.4 ALLERGIES: Ultram Start 23:25 12/05/2016 Alyce Pittman R.N., Stop 00:25 12/06/2016 Alyce Pittman R.N. Medication Administered: IV NS (SALINE), Dose: IV Fluids over 30 minute(s), Rate: 1000 mL/hr, Dispensed: 1000 mL bag, Site: #1 left AC. Medication Ordered: IV NS : initial bolus 500 mL (1000 mL/hr), then 125 mL/hr for 4h (NOW); Urgent.
--- NOTE | 2016-12-08 11:00 | ED DISCHARGE INSTRUCTIONS ---
Patient: BHAVIN FAITH General Instructions [facility] VisitID: [id number] [place] [address] 41y, F Registration Date/Time: 12/05/2016 Hiatal hernia. INSTRUCTIONS Avoid alcohol and NSAIDS. Examples of NSAIDS include aspirin, ibuprofen (Advil) and naproxen (Aleve). Avoid salty and spicy foods. Do not smoke. Seek medical help to quit smoking. Warnings: Further evaluation is necessary. GENERAL WARNINGS: Return or contact your physician immediately if your condition worsens or changes unexpectedly, if not improving as expected, or if other problems arise. Your Current Medications: CONTINUE TAKING THE FOLLOWING MEDICATIONS: Doxycycline Hyclate Oral. Iron Oral. Methadone HCl Oral. Pantoprazole Sodium Oral. Follow-up: Follow up with a insemination worker on December 17 as scheduled. Understanding of the discharge instructions verbalized by patient and family. Follow-up with: [facility], , , [address] [place] [address] Follow up. Call for the next available appointment. ADDITIONAL INFORMATION GERD (Adult) The esophagus is a tube that carries food from the mouth to the stomach. A valve at the lower end of the esophagus prevents stomach acid from flowing upward. If this valve does not work properly, acid from the stomach enters the esophagus. If this occurs over and over, the acid will injure the lining of the esophagus. This condition is called GERD (gastroesophageal reflux disease) or acid reflux. When stomach acid flows upward into the esophagus, it causes burning, pressure or sharp pain in the upper abdomen or mid to lower chest. The pain can spread to the neck, back, or shoulder, similar to heart pain (angina). There may be belching, an acid taste in the back of the throat, chronic cough, or sore throat or hoarseness. GERD symptoms often occur during the day after a big meal, but it can also occur at night when lying down. Smoking,as well as drinking alcohol, increases the risk of GERD. GERD is a chronic condition. Once it begins, it is often lifelong. Treatment includes changes in eating habits and the use of acid saritha medications to decrease the amount of acid in the stomach. Symptoms often improve with treatment, but if treatment is stopped, the symptoms usually return after a few months. So most persons with GERD will need to continue treatment. Home Care: Take the prescribed acid saritha medication for the full course of treatment even if you begin to feel better sooner. This medication can take up to several days to fully control your symptoms. If you cant afford the prescribed medication, you can try bkfi-xlb-zsbulok acid blockers, such as Pepcid AC, Tagamet, Zantac, or Aciphex. If these do not relieve your symptoms, a stronger acid-saritha can be tried, such as Prilosec OTC. You can use antacids, such as Tums, Rolaids, Mylanta, or Maalox, for pain. This will be useful the first few days after starting acid blockers when the blockers havent started working yet. Follow the directions on the label. Liquid antacids may work better than tablets. Note that antacids can interfere with absorption of certain medications. Specifically, do not take Tagamet (cimetidine), Zantac (ranitidine), or Carafate (sucralfate) within 1 hour of taking an antacid. Talk with your pharmacist if you have any questions. Limit or avoid fatty, fried, and spicy foods, as well as coffee, chocolate, mint, and foods with high acid content such as tomatoes and citrus fruit and juices (orange, grapefruit, lemon). Avoid alcohol and smoking. Dont eat large meals, especially at night. Frequent, smaller meals are best. Do not lie down right after eating. And dont eat anything 3 hours before going to bed. If you are overweight, losing weight will reduce symptoms. Women should not wear corsets or girdles because this increases pressure on the stomach and worsens reflux. If your symptoms occur during sleep, use a foam wedge to elevate your upper body (not just your head.) Or, place 4" blocks under the head of your bed. Follow Up with your doctor or as advised by our staff. Further testing may be needed. If you do not begin to improve over the next 4 days, contact your doctor. If you had an x-ray, CT scan, or ECG (electrocardiogram), it will be reviewed by a specialist. Youll be notified of any new findings that affect your care. Get Prompt Medical Attention if any of the following occur: Stomach pain gets worse or moves to the lower right abdomen (appendix area) Chest pain appears or gets worse, or spreads to the back, neck, shoulder, or arm Frequent vomiting (cant keep down liquids) Blood in the stool or vomit (red or black in color) Feeling weak or dizzy, fainting, or trouble breathing Fever of 100.4F (38C) or higher, or as directed by your healthcare provider [place] Diet A bland diet is used for patients with an upset stomach. It consists of foods that are mild and easy to digest. It is better to eat small frequent meals rather than three large meals a day. BEVERAGES OK: Fruit juices, non-caffeinated teas and coffee, non-carbonated hale AVOID: Carbonated beverage, caffeinated tea and coffee, all alcoholic beverages BREAD OK: Refined white, wheat or rye bread, belén or soda crackers, [place] toast, plain rolls, bagels AVOID: Whole-grain bread CEREAL OK: Refined cereals: cooked or ready to eat AVOID: Whole grain cereals and granola, or those containing bran, seeds or nuts DESSERTS OK: Peanut butter and all others except those to "avoid" AVOID: Chocolate, cocoa, coconut, popcorn, nuts, seeds, jam, marmalade FRUITS OK: Canned, cooked, frozen or fresh fruits without seeds or tough skin AVOID: Olives, skin and seeds of fruit MEATS OK: All fresh or preserved meat, fish and fowl AVOID: Any that are prepared with those spices to "avoid" CHEESE & EGGS OK: Eggs, cottage cheese, cream cheese, other cheeses AVOID: All cheeses made with those spices to "avoid" POTATOES & PASTA OK: Potato, rice, macaroni, noodles, spaghetti AVOID: None SOUPS OK: All soups without heavy seasoning AVOID: Soups made with those spices to "avoid" VEGETABLES OK: Canned, cooked, fresh or frozen mildly flavored vegetables without seeds, skins or coarse fiber AVOID: Vegetables prepared with those spices to "avoid"; skin and seeds of vegetables and those with coarse fiber SPICES OK: Salt, lemon and [place] juice, vinegar, all extracts, ivonne, cinnamon, thyme, mace, allspice, paprika AVOID: [place] powder, cloves, pepper, seed spices, garlic, gravy pickles, highly seasoned salad dressings How To Quit Smoking Smoking is one of the hardest habits to break. About half of all those who have ever smoked have been able to quit, and most of those (about 70%) who still smoke want to quit. Here are some of the best ways to stop smoking. Keep Trying: It takes most smokers about 8 tries before they are finally able to fully quit. So, the more often you try and fail, the better your chance of quitting the next time! So, don't give up! Go Cold [place]: Most ex-smokers quit cold turkey. Trying to cut back gradually doesn't seem to work as well, perhaps because it continues the smoking habit. Also, it is possible to fool yourself by inhaling more while smoking fewer cigarettes. This results in the same amount of nicotine in your body! Get Support: Support programs can make an important difference, especially for the heavy smoker. These groups offer lectures, methods to change your behavior and peer support. Call the free national Quitline for more information. 280-URLW-JFB (398-423-9844). Low-cost or free programs are offered by many hospitals, local chapters of the [place] [employer] (331-608-0186) and the [place] [employer] (294-880-3516). Support at home is important too. Non-smokers can help by offering praise and encouragement. If the smoker fails to quit, encourage them to try again! Nhal-Pxv-Lwijadr Medicines: For those who can't quit on their own, Nicotine Replacement Therapy (NRT) may make quitting much easier. Certain aids such as the nicotine patch, gum and lozenge are available without a prescription. However, it is best to use these under the guidance of your doctor. The skin patch provides a steady supply of nicotine to the body. Nicotine gum and lozenge gives temporary bursts of low levels of nicotine. Both methods take the edge off the craving for cigarettes. WARNING: If you feel symptoms of nicotine overdose, such as nausea, vomiting, dizziness, weakness, or fast heartbeat, stop using these and see your doctor. Prescription Medicines: After evaluating your smoking patterns and prior attempts at quitting, your doctor may offer a prescription medicine such as bupropion (Zyban, Wellbutrin), varenicline (Chantix, Champix), a niocotine inhaler or nasal spray. Each has its unique advantage and side effects which your doctor can review with you. Health Benefits Of Quitting: The benefits of quitting start right away and keep improving the longer you go without smokin minutes: blood pressure and pulse return to normal 8 hours: oxygen levels return to normal 2 days: ability to smell and taste begins to improve as damaged nerves start to regrow 2-3 weeks: circulation and lung function improves 1-9 months: decreased cough, congestion and shortness of breath; less tired 1 year: risk of heart attack decreases by half 5 years: risk of lung cancer decreases by half; risk of stroke becomes the same as a non-smoker For information about how to quit smoking, visit the following links: National Cancer [place] , Clearing the Air, Quit Smoking Today - an online booklet. http://www.smokefree.gov/pubs/clearing_the_air.pdf Smokefree.gov http://smokefree.gov/ QuitNet http://www.quitnet.com/ You have been given the following additional information: GERD (Adult) Diet, [place] (Adult) Smoking Cessation (Electronically signed by Bandar Farley MD 12/08/2016 11:00)
--- NOTE | 2016-12-08 11:00 | ED MAR SUMMARY ---
..... Medication Administration Record [facility] [address] [place] [address] Patient: BHAVIN FAITH Visit ID: [id number] 41y, F Weight: 87.9 kg Height/Length: 67 in BMI: 30.4 ALLERGIES: Ultram Start 23:25 12/05/2016 Alyce Pittman R.N., Stop 00:25 12/06/2016 Alyce Pittman R.N. Medication Administered: IV NS (SALINE), Dose: IV Fluids over 30 minute(s), Rate: 1000 mL/hr, Dispensed: 1000 mL bag, Site: #1 left AC. Medication Ordered: IV NS : initial bolus 500 mL (1000 mL/hr), then 125 mL/hr for 4h (NOW); Urgent.
--- NOTE | 2016-12-08 11:00 | ED MED RECONCILIATION SUMMARY ---
Patient: BHAVIN FAITH Medication Reconciliation Report [facility] VisitID: [id number] [address] [place] [address] 41y, F Registration Date/Time: 12/05/2016 Weight: 87.9 kg Height/Length: 67 in. BMI: 30.4 ALLERGIES: Ultram The patient's Home Medications are listed below: CONTINUE TAKING THE FOLLOWING MEDICATIONS: Doxycycline Hyclate Oral Iron Oral Methadone HCl Oral Pantoprazole Sodium Oral The source(s) of the original Home Medication information: patient The following Medications were given to the patient in the Emergency Department: IV NS IV Fluids bolus 0, then 1000 mL/hr, administered: 12/05/2016 11:25:00 PM The following Medications were prescribed to the patient: None.
--- NOTE | 2016-12-08 11:00 | ED DISCHARGE INSTRUCTIONS ---
Patient: BHAVIN FAITH General Instructions [facility] VisitID: [id number] [place] [address] 41y, F Registration Date/Time: 12/05/2016 Hiatal hernia. INSTRUCTIONS Avoid alcohol and NSAIDS. Examples of NSAIDS include aspirin, ibuprofen (Advil) and naproxen (Aleve). Avoid salty and spicy foods. Do not smoke. Seek medical help to quit smoking. Warnings: Further evaluation is necessary. GENERAL WARNINGS: Return or contact your physician immediately if your condition worsens or changes unexpectedly, if not improving as expected, or if other problems arise. Your Current Medications: CONTINUE TAKING THE FOLLOWING MEDICATIONS: Doxycycline Hyclate Oral. Iron Oral. Methadone HCl Oral. Pantoprazole Sodium Oral. Follow-up: Follow up with a director of rehabilitative services on December 17 as scheduled. Understanding of the discharge instructions verbalized by patient and family. Follow-up with: [facility], , , [address] [place] [address] Follow up. Call for the next available appointment. ADDITIONAL INFORMATION GERD (Adult) The esophagus is a tube that carries food from the mouth to the stomach. A valve at the lower end of the esophagus prevents stomach acid from flowing upward. If this valve does not work properly, acid from the stomach enters the esophagus. If this occurs over and over, the acid will injure the lining of the esophagus. This condition is called GERD (gastroesophageal reflux disease) or acid reflux. When stomach acid flows upward into the esophagus, it causes burning, pressure or sharp pain in the upper abdomen or mid to lower chest. The pain can spread to the neck, back, or shoulder, similar to heart pain (angina). There may be belching, an acid taste in the back of the throat, chronic cough, or sore throat or hoarseness. GERD symptoms often occur during the day after a big meal, but it can also occur at night when lying down. Smoking,as well as drinking alcohol, increases the risk of GERD. GERD is a chronic condition. Once it begins, it is often lifelong. Treatment includes changes in eating habits and the use of acid saritha medications to decrease the amount of acid in the stomach. Symptoms often improve with treatment, but if treatment is stopped, the symptoms usually return after a few months. So most persons with GERD will need to continue treatment. Home Care: Take the prescribed acid saritha medication for the full course of treatment even if you begin to feel better sooner. This medication can take up to several days to fully control your symptoms. If you cant afford the prescribed medication, you can try snnh-inw-btgtvgd acid blockers, such as Pepcid AC, Tagamet, Zantac, or Aciphex. If these do not relieve your symptoms, a stronger acid-saritha can be tried, such as Prilosec OTC. You can use antacids, such as Tums, Rolaids, Mylanta, or Maalox, for pain. This will be useful the first few days after starting acid blockers when the blockers havent started working yet. Follow the directions on the label. Liquid antacids may work better than tablets. Note that antacids can interfere with absorption of certain medications. Specifically, do not take Tagamet (cimetidine), Zantac (ranitidine), or Carafate (sucralfate) within 1 hour of taking an antacid. Talk with your pharmacist if you have any questions. Limit or avoid fatty, fried, and spicy foods, as well as coffee, chocolate, mint, and foods with high acid content such as tomatoes and citrus fruit and juices (orange, grapefruit, lemon). Avoid alcohol and smoking. Dont eat large meals, especially at night. Frequent, smaller meals are best. Do not lie down right after eating. And dont eat anything 3 hours before going to bed. If you are overweight, losing weight will reduce symptoms. Women should not wear corsets or girdles because this increases pressure on the stomach and worsens reflux. If your symptoms occur during sleep, use a foam wedge to elevate your upper body (not just your head.) Or, place 4" blocks under the head of your bed. Follow Up with your doctor or as advised by our staff. Further testing may be needed. If you do not begin to improve over the next 4 days, contact your doctor. If you had an x-ray, CT scan, or ECG (electrocardiogram), it will be reviewed by a specialist. Youll be notified of any new findings that affect your care. Get Prompt Medical Attention if any of the following occur: Stomach pain gets worse or moves to the lower right abdomen (appendix area) Chest pain appears or gets worse, or spreads to the back, neck, shoulder, or arm Frequent vomiting (cant keep down liquids) Blood in the stool or vomit (red or black in color) Feeling weak or dizzy, fainting, or trouble breathing Fever of 100.4F (38C) or higher, or as directed by your healthcare provider [place] Diet A bland diet is used for patients with an upset stomach. It consists of foods that are mild and easy to digest. It is better to eat small frequent meals rather than three large meals a day. BEVERAGES OK: Fruit juices, non-caffeinated teas and coffee, non-carbonated hale AVOID: Carbonated beverage, caffeinated tea and coffee, all alcoholic beverages BREAD OK: Refined white, wheat or rye bread, belén or soda crackers, [place] toast, plain rolls, bagels AVOID: Whole-grain bread CEREAL OK: Refined cereals: cooked or ready to eat AVOID: Whole grain cereals and granola, or those containing bran, seeds or nuts DESSERTS OK: Peanut butter and all others except those to "avoid" AVOID: Chocolate, cocoa, coconut, popcorn, nuts, seeds, jam, marmalade FRUITS OK: Canned, cooked, frozen or fresh fruits without seeds or tough skin AVOID: Olives, skin and seeds of fruit MEATS OK: All fresh or preserved meat, fish and fowl AVOID: Any that are prepared with those spices to "avoid" CHEESE & EGGS OK: Eggs, cottage cheese, cream cheese, other cheeses AVOID: All cheeses made with those spices to "avoid" POTATOES & PASTA OK: Potato, rice, macaroni, noodles, spaghetti AVOID: None SOUPS OK: All soups without heavy seasoning AVOID: Soups made with those spices to "avoid" VEGETABLES OK: Canned, cooked, fresh or frozen mildly flavored vegetables without seeds, skins or coarse fiber AVOID: Vegetables prepared with those spices to "avoid"; skin and seeds of vegetables and those with coarse fiber SPICES OK: Salt, lemon and [place] juice, vinegar, all extracts, [place], cinnamon, thyme, mace, allspice, paprika AVOID: [place] powder, cloves, pepper, seed spices, garlic, gravy pickles, highly seasoned salad dressings How To Quit Smoking Smoking is one of the hardest habits to break. About half of all those who have ever smoked have been able to quit, and most of those (about 70%) who still smoke want to quit. Here are some of the best ways to stop smoking. Keep Trying: It takes most smokers about 8 tries before they are finally able to fully quit. So, the more often you try and fail, the better your chance of quitting the next time! So, don't give up! Go Cold [place]: Most ex-smokers quit cold turkey. Trying to cut back gradually doesn't seem to work as well, perhaps because it continues the smoking habit. Also, it is possible to fool yourself by inhaling more while smoking fewer cigarettes. This results in the same amount of nicotine in your body! Get Support: Support programs can make an important difference, especially for the heavy smoker. These groups offer lectures, methods to change your behavior and peer support. Call the free national Quitline for more information. 954-SKRI-QDO (510-871-0115). Low-cost or free programs are offered by many hospitals, local chapters of the [place] [employer] (395-432-5492) and the [place] [employer] (506-686-3571). Support at home is important too. Non-smokers can help by offering praise and encouragement. If the smoker fails to quit, encourage them to try again! Geen-Vvv-Zgadbpe Medicines: For those who can't quit on their own, Nicotine Replacement Therapy (NRT) may make quitting much easier. Certain aids such as the nicotine patch, gum and lozenge are available without a prescription. However, it is best to use these under the guidance of your doctor. The skin patch provides a steady supply of nicotine to the body. Nicotine gum and lozenge gives temporary bursts of low levels of nicotine. Both methods take the edge off the craving for cigarettes. WARNING: If you feel symptoms of nicotine overdose, such as nausea, vomiting, dizziness, weakness, or fast heartbeat, stop using these and see your doctor. Prescription Medicines: After evaluating your smoking patterns and prior attempts at quitting, your doctor may offer a prescription medicine such as bupropion (Zyban, Wellbutrin), varenicline (Chantix, Champix), a niocotine inhaler or nasal spray. Each has its unique advantage and side effects which your doctor can review with you. Health Benefits Of Quitting: The benefits of quitting start right away and keep improving the longer you go without smokin minutes: blood pressure and pulse return to normal 8 hours: oxygen levels return to normal 2 days: ability to smell and taste begins to improve as damaged nerves start to regrow 2-3 weeks: circulation and lung function improves 1-9 months: decreased cough, congestion and shortness of breath; less tired 1 year: risk of heart attack decreases by half 5 years: risk of lung cancer decreases by half; risk of stroke becomes the same as a non-smoker For information about how to quit smoking, visit the following links: National Cancer [place] , Clearing the Air, Quit Smoking Today - an online booklet. http://www.smokefree.gov/pubs/clearing_the_air.pdf Smokefree.gov http://smokefree.gov/ QuitNet http://www.quitnet.com/ You have been given the following additional information: GERD (Adult) Diet, [place] (Adult) Smoking Cessation (Electronically signed by Bandar Farley MD 12/08/2016 11:00)
--- NOTE | 2016-12-08 11:00 | ED MED RECONCILIATION SUMMARY ---
Patient: BHAVIN FAITH Medication Reconciliation Report [facility] VisitID: [id number] [address] [place] [address] 41y, F Registration Date/Time: 12/05/2016 Weight: 87.9 kg Height/Length: 67 in. BMI: 30.4 ALLERGIES: Ultram The patient's Home Medications are listed below: CONTINUE TAKING THE FOLLOWING MEDICATIONS: Doxycycline Hyclate Oral Iron Oral Methadone HCl Oral Pantoprazole Sodium Oral The source(s) of the original Home Medication information: patient The following Medications were given to the patient in the Emergency Department: IV NS IV Fluids bolus 0, then 1000 mL/hr, administered: 12/05/2016 11:25:00 PM The following Medications were prescribed to the patient: None.
== END 2016-12-06 00:27 | disposition home or self-care (01) ==
LOC: ED SRH 21:27
DX: K44.9 Diaphragmatic hernia without obstruction or gangrene (principal); F17.210 Nicotine dependence, cigarettes, uncomplicated; Z88.8 Allergy status to other drugs, medicaments and biological substances
CPT/HCPCS: 90100; 90616; 91320; 91556; 92235; 92530; 92610; 94001; 94060; 95059